=== PATIENT | male | born 1960 | race American Indian/Alaskan Native ===

== ENCOUNTER 2016-04-03 16:06 | Outpatient (RCR) | payer MEDICARE, MEDICAID ==
[~2016-04-03 16:06] MED LIST: CYCL10TA9 PO; ENLP10T PO; GABA600T PO; HYDR-3714 PO; LORA0.5T34 GT; OXYC-109 PO; OXYC1TAB87 PO; POLY119P PO; PRM25T PO; SERT50TA9 PO; TOPI50TA2 PO; ZLP10T PO
--- OUTSIDE RECORDS SUMMARY | 2016-04-03 16:09 | XMS REPORT | Continuity of Care Document ---
Author Author [facility] Organization [facility] Address Unknown Phone Unavailable Care Team Providers Care Colorist Formulator Name Role Phone BRODIE BROWN PCP Insurance Providers Payer Name Policy Number Subscriber Name Relationship Wps Medicare [id number] Vincent Dasilva 18 Self / Same As Patient [facility] [id number] Vincent Dasilva 18 Self / Same As Patient Advance Directives Directive Response Recorded Date/Time Advance Directives No 11/29/13 11:53am Health Care Power of Cylinder Batcher No 11/29/13 11:53am Organ Donor No 11/29/13 11:53am Problems No known problems or medical conditions. Medications Medication Dose Route Sig Days/Qty Instructions Order Date Discontinued Date Status Topiramate 50 Mg PO TWICE A DAY 07/29/13 Active Lorazepam 0.5 Mg GT DAILY 07/29/13 11/29/13 Discontinued Zolpidem Tartrate 10 Mg PO BEDTIME 07/29/13 Active Cyclobenzaprine HCl (Flexeril) 10 Mg PO THREE TIMES A DAY PRN SPASMS PRN SPASMS 11/02/13 Active Oxycodone Hcl/Acetaminophen 1 Each PO Q6 PRN PAIN 11/02/13 11/29/13 Discontinued Hydrocodone Bit/Acetaminophen 1 Tab PO EVERY 6 HOURS PRN PAIN 12/13/13 Discontinued Polyethylene Glycol 17 Gm PO DAILY 11/29/13 Active Gabapentin 600 Mg PO THREE TIMES A DAY 11/29/13 Active Oxycodone/Acetaminophen 1-2 Tab PO GIVE EVERY 4 HRS ON SCHEDULE PRN pain 120 Qty 12/13/13 Active Enalapril Maleate 10 Mg PO DAILY 30 Qty 12/13/13 Active Promethazine HCl 25 Mg PO EVERY 8HRS PRN NAUSEA 30 Qty 12/13/13 Active Social History Social History Problem Response Recorded Date/Time Alcohol Use Denies Use 12/06/2013 12:43pm Recreational Drug Use Y OCC MARUIANNA 12/06/2013 12:43pm Recent Foreign Travel No 12/06/2013 12:43pm Recent Infectious Disease Exposure No 12/06/2013 12:43pm Hospitalization with Isolation Denies 12/13/2013 6:44pm Smoking Status Current Everyday Smoker 12/06/2013 12:42pm Do you dip or chew tobacco? No 12/06/2013 12:42pm Query Response Start Date Stop Date Smoking Status Current Everyday Smoker Hospital Discharge Instructions No hospital discharge instructions. Plan of Care Discharge Date 12/13/13 6:41pm Disposition 30 STILL A PATIENT Instructions/Education Provided Colostomy Care (DC) Forms Provided Follow-Up Appts. PDI Surgical Prescriptions See Medications Section Functional Status Query Response Date Recorded Patient Orientation Person Place Time Situation Normal For Age December 13, 2013 6:44pm Comprehension Ability Understands Concepts December 08, 2013 4:00pm Allergies, Adverse Reactions, Alerts Allergen Type Severity Reaction Status Last Updated No Known Drug Allergies Active 08/02/13 Immunizations Name Given Type Date of Pneumonia Vaccine 08/02/09 Historical Tetanus Booster (TDap) More than 5yrs Historical Vital Signs Acute Vital Signs Vital Response Date/Time Temperature (Fahrenheit) 99.3 degrees F (97.6 - 99.5) Temperature (Calculated Celsius) 37.25858 degrees C (36.4 - 37.5) Temperature Source Temporal Pulse Rate (adult) 80 bpm (60 - 90) Respiratory Rate 18 bpm (12 - 24) O2 Sat by Pulse Oximetry 98 % (88 - 100) Blood Pressure 149/78 mm Hg Pain Pain Intensity 3 Height (Feet) 5 feet Height (Inches) 11.00 inches Height (Calculated Centimeters) 180.062164 cm Weight (Pounds) 249 pounds Weight (Calculated Grams) 574327.501 gm Weight (Calculated Kilograms) 112.390932 kilograms Calculated BMI 34.72 Results Test Source Date Result Interp. Ref. Range Comments Alanine Aminotransferase (ALT/SGPT) October 22, 2013 2:07pm 24 U/L L 30-65 Albumin October 22, 2013 2:07pm 3.5 G/DL N 3.4-5.0 Alkaline Phosphatase October 22, 2013 2:07pm 110 U/L N 50-136 Anisocytosis November 02, 2013 10:10am MODERATE - Aspartate Amino Transf (AST/SGOT) October 22, 2013 2:07pm 12 U/L L 15-37 BUN/Creatinine Ratio November 29, 2013 12:15pm 11 - Band Neutrophils November 02, 2013 10:10am 0 % - Basophils # (Auto) November 29, 2013 12:15pm 0.0 10^3/uL N 0.0-0.1 Basophils % (Manual) November 02, 2013 10:10am 0 % - Basophils (%) (Auto) November 29, 2013 12:15pm 1 % N 0-10 Blood Urea Nitrogen November 29, 2013 12:15pm 10 MG/DL N 7-18 Calcium Level November 29, 2013 12:15pm 8.4 MG/DL L 8.5-10.1 Carbon Dioxide Level November 29, 2013 12:15pm 26 MMOL/L N 21-32 Carcinoembryonic Antigen September 14, 2013 1:54pm 0.7 NG/ML - INTERPRETIVE DATACEA IS A USEFUL TUMOR MARKER IN THE MONITORING AND STAGING OF PATIENTS WITH KNOWN CARCINOMA OF THE GASTROINTESTINAL TRACT. BREAST, PANCREAS AND LUNG. ELEVATIONS ALSO OCCUR IN SMOKERS AND BENIGN INFLAMMATORY CONDITIONS OF THE G.I. TRACT, LIVER, LUNG AND KIDNEY. CEA SHOULD,THEREFORE, NOT BE USED A SCREEN FOR MALIGNANT DISEASE. NON-SMOKERS <2.5 SMOKERS <5.0 PATIENTS WHO HAVE RECEIVED ONCOSCINT CR/OV TRACER MAY DEVELOP HUMAN ANTI MOUSE ANTIBODIES THAT CAUSE INTERFERENCE IN THIS TEST AND CAUSE FALSELY ELEVATED RESULTS. PLEASE ADVISE THE LABORATORY IF THIS IS A POSSIBILITY SO THAT ALTERNATE TESTING PROCEDURES MAY BE USED. Chloride Level November 29, 2013 12:15pm 107 MMOL/L N 101-110 Creatinine November 29, 2013 12:15pm 0.9 MG/DL N 0.6-1.3 Eosinophils # (Auto) November 29, 2013 12:15pm 0.5 10^3/uL H 0.0-0.3 Eosinophils % (Manual) November 02, 2013 10:10am 19 % - Eosinophils (%) (Auto) November 29, 2013 12:15pm 12 % H 0-10 Glucose Level November 29, 2013 12:15pm 89 MG/DL N 74-106 Hematocrit November 29, 2013 12:15pm 40 % N 40-54 Hemoglobin November 29, 2013 12:15pm 14.1 G/DL N 13.3-17.7 Lymphocytes # (Auto) November 29, 2013 12:15pm 0.6 X 10^3 L 1.0-4.0 Lymphocytes % (Manual) November 02, 2013 10:10am 18 % - Lymphocytes (%) (Auto) November 29, 2013 12:15pm 14 % N 12-44 Macrocytosis November 02, 2013 10:10am MODERATE - Mean Corpuscular Hemoglobin November 29, 2013 12:15pm 33 PG N 25-34 Mean Corpuscular Hemoglobin Concent November 29, 2013 12:15pm 35 G/DL N 32- 36 Mean Corpuscular Volume November 29, 2013 12:15pm 94 FL N 80-99 Mean Platelet Volume November 29, 2013 12:15pm 9.9 FL N 7.4-10.4 Monocytes # (Auto) November 29, 2013 12:15pm 0.5 X 10^3 N 0.0-1.0 Monocytes % (Manual) November 02, 2013 10:10am 11 % - Monocytes (%) (Auto) November 29, 2013 12:15pm 11 % N 0-12 Neutrophils # (Auto) November 29, 2013 12:15pm 2.7 X 10^3 N 1.8-7.8 Neutrophils % (Manual) November 02, 2013 10:10am 51 % - Neutrophils (%) (Auto) November 29, 2013 12:15pm 62 % N 42-75 Platelet Count November 29, 2013 12:15pm 198 10^3/uL N 130-400 Potassium Level November 29, 2013 12:15pm 3.5 MMOL/L L 3.6-5.0 Prothrombin Time November 29, 2013 12:15pm 12.7 SEC N 12.2-14.7 Reactive Lymphocytes November 02, 2013 10:10am 1 % - Red Blood Count November 29, 2013 12:15pm 4.31 10^6/uL L 4.35-5.85 Red Cell Distribution Width November 29, 2013 12:15pm 14.6 % H 10.0-14.5 Sodium Level November 29, 2013 12:15pm 141 MMOL/L N 135-145 Total Bilirubin October 22, 2013 2:07pm 0.4 MG/DL N 0.0-1.0 Total Protein October 22, 2013 2:07pm 7.6 G/DL N 6.4-8.2 White Blood Count November 29, 2013 12:15pm 4.3 10^3/uL N 4.3-11.0 Estimat Glomerular Filtration Rate November 29, 2013 12:15pm > 60 - GFR INTERPRETIVE DATA UNITS FOR ESTIMATED GFR (eGFR): mL/min/1.73 M2 REFERENCE RANGE FOR ESTIMATED GFR (eGFR) eGFR NORMAL eGFR >60 MODERATELY DECREASED eGFR 30-59 SEVERLY DECREASED eGFR 15-29 KIDNEY FAILURE <15 (OR DIALYSIS) INR Comment November 29, 2013 12:15pm 1.0 N 0.8-1.4 INTERPRETIVE DATASUGGESTED THERAPEUTIC RANGE FOR INR'S: VENOUS THROMBOSIS, PULMONARY EMBOLISM, OR PREVENTION OF SYSTEMIC EMBOLISM (EG. IN ATRIAL FIBRILLATION): 2.0 - 3.0 MECHANICAL PROSTHETIC HEART VALVES: 2.5 - 3.5* *NOTE: INR'S UP TO 4.5 MAY BE NECESSARY IN SELECTED GROUPS OF HIGH RISK PATIENTS. [employer] [place] CONSENSUS CONFERENCE ON ANTITHROMBOTIC THERAPY (2000). MRSA Screen Nasal November 29, 2013 12:15pm MRSA not isolated Procedures Procedure Status Date Provider(s) Abdominoperineal resection of rectum completed 12/06/13 ASHISH YEE DO Encounters Encounter Location Date/Time Discharged Inpatient Via [facility] 12/06/13 10:14am Registered Clinic [facility] 11/29/13 11:34am
[2016-04-03 16:13] LABS: BASOPHILS % (AUTO) 1 % (0-10); EOSINOPHILS # (AUTO) 0.2 10^3/uL (0.0-0.3); EOSINOPHILS % (AUTO) 3 % (0-10); LYMPHOCYTES # (AUTO) 1.2 X 10^3 (1.0-4.0); LYMPHOCYTES % (AUTO) 22 % (12-44); MEAN CORPUSCULAR HEMOGLOBIN 32 PG (25-34); MEAN CORPUSCULAR HGB CONC 34 G/DL (32-36); MEAN CORPUSCULAR VOLUME 93 FL (80-99); MEAN PLATELET VOLUME 10.3 FL (7.4-10.4); MONOCYTES # (AUTO) 0.5 X 10^3 (0.0-1.0); MONOCYTES % (AUTO) 10 % (0-12); NEUTROPHILS # (AUTO) 3.4 X 10^3 (1.8-7.8); NEUTROPHILS % (AUTO) 64 % (42-75); PLATELET COUNT 234 10^3/uL (130-400); RED BLOOD COUNT 4.71 10^6/uL (4.35-5.85); RED CELL DISTRIBUTION WIDTH 14.2 % (10.0-14.5); WHITE BLOOD COUNT 5.3 10^3/uL (4.3-11.0)
[2016-04-03 16:46] LABS: ALANINE AMINOTRANSFERASE 18 U/L (0-55); ALBUMIN 3.9 G/DL (3.2-4.5); ANION GAP 8 MMOL/L (5-14); ASPARTATE AMINO TRANSFERASE 21 U/L (5-34); BILIRUBIN,TOTAL 0.4 MG/DL (0.1-1.0); BLOOD UREA NITROGEN 9 MG/DL (7-18); BUN/CREATININE RATIO 11; CALCIUM 8.9 MG/DL (8.5-10.1); CARBON DIOXIDE 20 MMOL/L (21-32); CHLORIDE 114 MMOL/L (98-107); CREATININE SERUM 0.85 MG/DL (0.60-1.30); GFR ESTIMATED > 60; GLUCOSE 87 MG/DL (70-105); POTASSIUM 3.9 MMOL/L (3.6-5.0); SODIUM 142 MMOL/L (135-145); TOTAL PROTEIN 7.4 G/DL (6.4-8.2)
== END 2016-07-02 | disposition home or self-care (01) ==
LOC: ONC 16:06
PROVIDERS: ATTEND Internal Medicine Hematology & Oncology
DX: C20 Malignant neoplasm of rectum (principal)
CPT/HCPCS: 36415; 80053; 82378; 85025

== ENCOUNTER → 2016-05-21 | Outpatient (CLI) | payer MEDICARE, MEDICAID ==
--- OUTSIDE RECORDS SUMMARY | 2016-05-21 11:24 | XMS REPORT | Continuity of Care Document ---
Author Author [facility] Organization [facility] Address Unknown Phone Unavailable Care Team Providers Care Drainage Inspector Name Role Phone BRODIE BROWN PCP Insurance Providers Payer Name Policy Number Subscriber Name Relationship Wps Medicare [id number] Vincent Dasilva 18 Self / Same As Patient [facility] [id number] Vincent Dasilva 18 Self / Same As Patient Advance Directives Directive Response Recorded Date/Time Advance Directives No 11/29/13 11:53am Health Care Power of Drafting Supervisor No 11/29/13 11:53am Organ Donor No 11/29/13 [...] F (97.6 - 99.5) Temperature (Calculated Celsius) 37.41361 degrees C (36.4 - 37.5) Temperature Source Temporal Pulse Rate (adult) 80 bpm (60 - 90) Respiratory Rate 18 bpm (12 - 24) O2 Sat by Pulse Oximetry 98 % (88 - 100) Blood Pressure 149/78 mm Hg Pain Pain Intensity 3 Height (Feet) 5 feet Height (Inches) 11.00 inches Height (Calculated Centimeters) 180.690872 cm Weight (Pounds) 249 pounds Weight (Calculated Grams) 687523.501 gm Weight (Calculated Kilograms) 112.925350 kilograms Calculated BMI 34.72 Results Test Source [...] SELECTED GROUPS OF HIGH RISK PATIENTS. [employer] [employer] CONSENSUS CONFERENCE ON ANTITHROMBOTIC THERAPY (2000). MRSA Screen Nasal November 29, 2013 12:15pm MRSA not isolated Procedures Procedure Status Date Provider(s) Abdominoperineal resection of rectum completed 12/06/13 ASHISH YEE DO Encounters Encounter Location Date/Time Discharged Inpatient Via [facility] 12/06/13 10:14am Registered Clinic [facility] 11/29/13 11:34am
--- NOTE | 2016-05-21 16:13 | Diagnostic Imaging Report ---
EXAMINATION: PET-CT TECHNIQUE: Serum glucose level at the time of the study is: 83 mg/dL. 13.9 mCi of FDG was administered intravenously followed by obtaining PET images with corresponding noncontrast CT scan images. The CT scan was performed for anatomic correlation and attenuation correction and was not performed according to the diagnostic protocol of the areas covered. The scan was performed from the head to mid thighs. INDICATION: Colon cancer. Increased nodularity noted in the presacral region seen on CT from 04/30/2016 and filling defect within the lumen of the distal ileum was noted. Correlating PET/CT from 10/10/15 is reviewed. FINDINGS: There is symmetric FDG uptake in the brain seen. There is mild to moderate increased FDG uptake in the oral cavity that appears to correlate with the region of the hard palate with no definite underlying mass seen on the localizer CT scan. The area of activity appears elongated as well on the sagittal projection which is in favor of an inflammatory rather than neoplastic etiology. No suspicious hypermetabolic mass or enlarged lymph node in the chest is seen. There is urinary excretion of the tracer noted. There is moderate image noise on the exam probably secondary to the patient's body habitus. This might also relate to decreased counts from some muscle uptake seen around the shoulders and upper back in particular which would decrease the available counts available otherwise for distribution in the rest of the body. The bowel loops demonstrate relatively mild nonfocal activity in ileal loops within the pelvis with focal area of mild increased activity with maximum SUV of 5.6. This does not appear to correlate with appearance of a filling defect seen on recent CT scan and has correlating low density probably related to enteric fluid content suggestive of physiologic uptake. In the presacral area, there is mild nodularity seen with minimal increased FDG uptake at maximum SUV of 3, nonspecific for scarring. Given the increased thickness of the soft tissue nodularity from prior studies, early recurrence is not entirely excluded. IMPRESSION: Nonspecific minimal focal area of increased FDG uptake in the distal small bowel loops does not appear to definitely correlate with associated soft tissue density to suggest an enteric mass. There is also minimal increased FDG uptake within the nodular area in the presacral region. This is not enough activity to confirm tumor recurrence. Continued followup recommended. Dictated by: Dictated on workstation # [id number]
== END ==
LOC: RAD 11:20
PROVIDERS: ATTEND Surgery
DX: C18.9 Malignant neoplasm of colon, unspecified (principal)

== ENCOUNTER → 2016-06-20 | Outpatient (CLI) | payer MEDICARE, MEDICAID ==
--- OUTSIDE RECORDS SUMMARY | 2016-06-20 05:44 | XMS REPORT | Continuity of Care Document ---
Author Author [facility] Organization [facility] Address Unknown Phone Unavailable Care Team Providers Care Conference Center Coordinator Name Role Phone BRODIE BROWN PCP Insurance Providers Payer Name Policy Number Subscriber Name Relationship [employer] Medicare [id number] Vincent Dasilva 18 Self / Same As Patient [facility] [id number] Vincent Dasilva 18 Self / Same As Patient Advance Directives Directive Response Recorded Date/Time Advance Directives No 11/29/13 11:53am Health Care Power of Finish Carpenter No 11/29/13 11:53am Organ Donor No 11/29/13 [...] F (97.6 - 99.5) Temperature (Calculated Celsius) 37.58845 degrees C (36.4 - 37.5) Temperature Source Temporal Pulse Rate (adult) 80 bpm (60 - 90) Respiratory Rate 18 bpm (12 - 24) O2 Sat by Pulse Oximetry 98 % (88 - 100) Blood Pressure 149/78 mm Hg Pain Pain Intensity 3 Height (Feet) 5 feet Height (Inches) 11.00 inches Height (Calculated Centimeters) 180.347156 cm Weight (Pounds) 249 pounds Weight (Calculated Grams) 962355.501 gm Weight (Calculated Kilograms) 112.422327 kilograms Calculated BMI 34.72 Results Test Source [...] SELECTED GROUPS OF HIGH RISK PATIENTS. [employer] [employer] CONSENSUS CONFERENCE ON ANTITHROMBOTIC THERAPY (2000). MRSA Screen Nasal November 29, 2013 12:15pm MRSA not isolated Procedures Procedure Status Date Provider(s) Abdominoperineal resection of rectum completed 12/06/13 ASHISH YEE DO Encounters Encounter Location Date/Time Discharged Inpatient Via [facility] 12/06/13 10:14am Registered Clinic [facility] 11/29/13 11:34am
== END ==
LOC: PREOP 05:40
PROVIDERS: ATTEND Surgery
DX: Z01.818 Encounter for other preprocedural examination (principal); C20 Malignant neoplasm of rectum

== ENCOUNTER 2018-04-22 12:46 | Outpatient (RCR) | payer MEDICARE, MEDICAID ==
[2018-04-22 13:04] LABS: BASOPHILS % (AUTO) 1 % (0-10); EOSINOPHILS # (AUTO) 0.2 10^3/uL (0.0-0.3); EOSINOPHILS % (AUTO) 3 % (0-10); HEMATOCRIT 42 % (40-54); HEMOGLOBIN 14.1 G/DL (13.3-17.7); LYMPHOCYTES # (AUTO) 1.2 X 10^3 (1.0-4.0); LYMPHOCYTES % (AUTO) 18 % (12-44); MEAN CORPUSCULAR HEMOGLOBIN 29 PG (25-34); MEAN CORPUSCULAR HGB CONC 34 G/DL (32-36); MEAN CORPUSCULAR VOLUME 88 FL (80-99); MEAN PLATELET VOLUME 10.3 FL (7.4-10.4); MONOCYTES # (AUTO) 0.5 X 10^3 (0.0-1.0); MONOCYTES % (AUTO) 8 % (0-12); NEUTROPHILS # (AUTO) 4.6 X 10^3 (1.8-7.8); NEUTROPHILS % (AUTO) 70 % (42-75); PLATELET COUNT 236 10^3/uL (130-400); RED CELL DISTRIBUTION WIDTH 13.9 % (10.0-14.5); WHITE BLOOD COUNT 6.6 10^3/uL (4.3-11.0)
[2018-04-22 13:25] LABS: ALANINE AMINOTRANSFERASE 14 U/L (0-55); ALBUMIN 3.8 GM/DL (3.2-4.5); ALKALINE PHOSPHATASE 214 U/L (40-136); BILIRUBIN,TOTAL 0.4 MG/DL (0.1-1.0); BUN/CREATININE RATIO 15; CALCIUM 9.4 MG/DL (8.5-10.1); CARBON DIOXIDE 26 MMOL/L (21-32); CHLORIDE 105 MMOL/L (98-107); CREATININE SERUM 1.01 MG/DL (0.60-1.30); GFR ESTIMATED > 60; GLUCOSE 118 MG/DL (70-105); POTASSIUM 3.5 MMOL/L (3.6-5.0); SODIUM 141 MMOL/L (135-145); TOTAL PROTEIN 7.6 GM/DL (6.4-8.2)
== END 2018-07-21 | disposition home or self-care (01) ==
LOC: ONC 12:46
PROVIDERS: ATTEND Internal Medicine Hematology & Oncology
DX: C20 Malignant neoplasm of rectum (principal); C79.51 Secondary malignant neoplasm of bone; K43.5 Parastomal hernia without obstruction or gangrene; M54.5 Low back pain; R06.00 Dyspnea, unspecified; R32 Unspecified urinary incontinence; Z79.899 Other long term (current) drug therapy
CPT/HCPCS: 36415; 80053; 82378; 85025; 99213

== ENCOUNTER → 2018-04-23 | Outpatient (CLI) | payer MEDICARE, MEDICAID | END | disposition home or self-care (01) | LOC: PREOP 05:34 | PROVIDERS: ATTEND Surgery | DX: Z01.818 Encounter for other preprocedural examination (principal) ==

== ENCOUNTER 2019-02-19 11:15 | Emergency (ER) | payer MEDICARE, MEDICAID ==
[~2019-02-19] VITALS: Ht 180.3 cm; Wt 77.0 kg
--- NOTE | 2019-02-19 11:27 | ED General ---
General Stated Complaint: GENERAL WEAKNESS History of Present Illness Date Seen by Provider: Feb 19, 2019 Time Seen by Provider: 11:15 Initial Comments 58-year-old male brought in by EMS. Patient brought in for generalized weakness. Patient has known metastatic anal cancer. Patient was seen by his home health care nurse today and sent him in for exam and possible placement if able to facility. Patient has been living alone has not had medical care or taken his medications for 8 months. When I asked patient what he would like to have done he says whatever his home health care nurses says. Patient states he knows he has terminal cancer. Patient reports he does not take his medication because he has not seen a doctor to get them. Patient has some bilateral drainage from his eyes but otherwise no complaints besides maybe some generalized weakness. Allergies and Home Medications Allergies Coded Allergies: No Known Drug Allergies (Unverified , 08/02/13) Home Medications Enalapril Maleate 10 Mg Tab, 10 MG PO DAILY, (Reported) Oxycodone Hcl/Acetaminophen 1 Tab Tablet, 1-2 TAB PO Q4HR PRN for PAIN Prescribed by: RYAN KRISHNA on 01/21/14 0942 Polyethylene Glycol 119 Gm Btl, 17 GM PO DAILY, (Reported) Sertraline Hcl 50 Mg Tablet, 50 MG PO DAILY, (Reported) Zolpidem Tartrate 10 Mg Tab, 10 MG PO HS, (Reported) Patient Home Medication List Home Medication List Reviewed: Yes Review of Systems Review of Systems Constitutional: see HPI, weakness EENTM: see HPI Respiratory: cough Cardiovascular: No chest pain Gastrointestinal: see HPI Genitourinary: incontinence Musculoskeletal: no symptoms reported Past Nhveaym-Eakwqt-Ckfbtt Hx Past Med/Social Hx: Reviewed Nursing Past Med/Soc Hx Immunizations Up To Date Tetanus Booster (TDap): More than 5yrs Date of Pneumonia Vaccine: Aug 02, 2009 Past Medical History Arthritis Rectal Family Medical History Alcoholism 19 FATHER 19 MOTHER Cancer 19 MOTHER (BREAST) G8 BROTHER (STOMACH) G8 SISTER (BREAST) Family history: Breast disease 19 MOTHER Myocardial infarction 19 FATHER Stroke 19 FATHER No Family History of: Abdominal aortic aneurysm Cancer of colon Congestive heart failure Family history: Alzheimer's disease Family history: Arthritis Family history: Asthma Family history: Cardiovascular disease Family history: Diabetes mellitus Family history: Gastrointestinal disease Family history: Hypertension Family history: Thyroid disorder Heart disease Hereditary disease Parkinson's disease Prostate cancer Psychotic disorder Seizure disorder Physical Exam Vital Signs Vital Signs - First Documented 02/19/19 11:18 Temp 36.9 Pulse 92 Resp 16 B/P (MAP) 137/92 (107) Pulse Ox 100 O2 Delivery Room Air Capillary Refill : Height, Weight, BMI Height: 5'11.00" Weight: 269lbs. oz. 122.181142ki; BMI Method: General Appearance: Other (unkept, smells of urine) Eyes: Bilateral Eye Other (bilateral mucopurulent drainage) Neck: Full Range of Motion Respiratory: Lungs Clear Cardiovascular: Regular Rate, Rhythm Gastrointestinal: No Tenderness; Other (ostomy pouch in right lower quadrant) Extremity: Normal Capillary Refill Neurologic/Psychiatric: Alert, Oriented x3, No Motor/Sensory Deficits Skin: Warm/Dry Progress/Results/Core Measures Suspected Sepsis SIRS Temperature: Pulse: Respiratory Rate: Laboratory Tests 02/19/19 11:23: White Blood Count 7.3 Blood Pressure / Mean: Laboratory Tests 02/19/19 11:23: Creatinine 3.31H, INR Comment 1.0, Platelet Count 348, Total Bilirubin 0.2 Results/Orders Lab Results Laboratory Tests Test 02/19/19 11:23 02/19/19 12:39 Range/Units White Blood Count 7.3 4.3-11.0 10^3/uL Red Blood Count 3.18 L 4.35-5.85 10^6/uL Hemoglobin 8.8 L 13.3-17.7 G/DL Hematocrit 28 L 40-54 % Mean Corpuscular Volume 88 80-99 FL Mean Corpuscular Hemoglobin 28 25-34 PG Mean Corpuscular Hemoglobin Concent 31 L 32-36 G/DL Red Cell Distribution Width 15.8 H 10.0-14.5 % Platelet Count 348 130-400 10^3/uL Mean Platelet Volume 8.3 7.4-10.4 FL Neutrophils (%) (Auto) 68 42-75 % Lymphocytes (%) (Auto) 23 12-44 % Monocytes (%) (Auto) 5 0-12 % Eosinophils (%) (Auto) 2 0-10 % Basophils (%) (Auto) 1 0-10 % Neutrophils # (Auto) 5.0 1.8-7.8 X 10^3 Lymphocytes # (Auto) 1.7 1.0-4.0 X 10^3 Monocytes # (Auto) 0.4 0.0-1.0 X 10^3 Eosinophils # (Auto) 0.2 0.0-0.3 10^3/uL Basophils # (Auto) 0.1 0.0-0.1 10^3/uL Prothrombin Time 14.0 12.2-14.7 SEC INR Comment 1.0 0.8-1.4 Sodium Level 138 135-145 MMOL/L Potassium Level 3.5 L 3.6-5.0 MMOL/L Chloride Level 106 98-107 MMOL/L Carbon Dioxide Level 19 L 21-32 MMOL/L Anion Gap 13 5-14 MMOL/L Blood Urea Nitrogen 43 H 7-18 MG/DL Creatinine 3.31 H 0.60-1.30 MG/DL Estimat Glomerular Filtration Rate 19 BUN/Creatinine Ratio 13 Glucose Level 97 70-105 MG/DL Calcium Level 8.7 8.5-10.1 MG/DL Corrected Calcium 9.4 8.5-10.1 MG/DL Total Bilirubin 0.2 0.1-1.0 MG/DL Aspartate Amino Transf (AST/SGOT) 8 5-34 U/L Alanine Aminotransferase (ALT/SGPT) < 5 0-55 U/L Alkaline Phosphatase 222 H 40-136 U/L Total Protein 8.6 H 6.4-8.2 GM/DL Albumin 3.1 L 3.2-4.5 GM/DL Urine Color PALE YELLOW Urine Clarity CLOUDY Urine pH 6.0 5-9 Urine Specific [place] 1.010 L 1.016-1.022 Urine Protein 1+ H NEGATIVE Urine Glucose (UA) NEGATIVE NEGATIVE Urine Ketones NEGATIVE NEGATIVE Urine Nitrite POSITIVE H NEGATIVE Urine Bilirubin NEGATIVE NEGATIVE Urine Urobilinogen 0.2 NORMAL MG/DL Urine Leukocyte Esterase 3+ H NEGATIVE Urine RBC (Auto) 1+ H NEGATIVE Urine RBC RARE /HPF Urine WBC TNTC H /HPF Urine Squamous Epithelial Cells NONE /HPF Urine Crystals NONE /LPF Urine Bacteria LARGE H /HPF Urine Casts NONE /LPF Urine Mucus NONE /LPF Urine Culture Indicated YES My Orders Orders - LANCE GONZALEZ L DO Cbc With Automated Diff (02/19/19 11:18) Comprehensive Metabolic Panel (02/19/19 11:18) Protime With Inr (02/19/19 11:18) Ua Culture If Indicated (02/19/19 11:18) Acute Abd Series (02/19/19 11:18) Ed Iv/Invasive Line Start (02/19/19 11:59) Ns Iv 1000 Ml (Sodium Chloride 0.9%) (02/19/19 11:59) Urine Culture (02/19/19 12:39) Ceftriaxone For Iv Use (Rocephin For I (02/19/19 13:30) Medications Given in ED Current Medications Medications Dose Ordered Sig/Paulina Route Start Time Stop Time Status Last Admin Dose Admin Ceftriaxone Sodium 1000 mg/ Sterile Water 10 ml @ 200 mls/hr ONCE ONCE IV 02/19/19 13:30 02/19/19 13:32 DC 02/19/19 13:24 200 MLS/HR Vital Signs/I&O 02/19/19 11:18 Temp 36.9 Pulse 92 Resp 16 B/P (MAP) 137/92 (107) Pulse Ox 100 O2 Delivery Room Air Capillary Refill : Progress Note : Progress Note Patient with acute kidney injury and hypokalemia. We will admit patient to Dr. Harvey for inpatient treatment and then probable long term. Patient will be transferred to [facility] due to [facility] having no beds available. Patient is stable and will be transferred in stable condition. ECG Initial ECG Impression: Normal Diagnostic Imaging Diagonstic Imaging: Xray Plain Films/CT/US/NM/MRI: abdomen Comments No acute findings Departure Impression Primary Impression: Acute kidney injury Additional Impression: Hypokalemia Disposition: 02 XFER SHT-TRM HOSP Condition: Stable Transfer Time Spoke to Accepting Phy: 12:15 Transfer Facility: [facility] Method of Transfer: EMS Departure-Patient Inst. Referrals: JESSICA MORGAN MD (PCP) Primary Care Physician BRODIE BROWN (Family) Primary Care Physician LANCE GONZALEZ DO Feb 19, 2019 11:27
[2019-02-19 11:33] LABS: BASOPHILS % (AUTO) 1 % (0-10); EOSINOPHILS % (AUTO) 2 % (0-10); HEMATOCRIT 28 % (40-54); HEMOGLOBIN 8.8 G/DL (13.3-17.7); LYMPHOCYTES % (AUTO) 23 % (12-44); MEAN CORPUSCULAR HEMOGLOBIN 28 PG (25-34); MEAN CORPUSCULAR HGB CONC 31 G/DL (32-36); MEAN CORPUSCULAR VOLUME 88 FL (80-99); MEAN PLATELET VOLUME 8.3 FL (7.4-10.4); MONOCYTES % (AUTO) 5 % (0-12); NEUTROPHILS % (AUTO) 68 % (42-75); PLATELET COUNT 348 10^3/uL (130-400); RED CELL DISTRIBUTION WIDTH 15.8 % (10.0-14.5); WHITE BLOOD COUNT 7.3 10^3/uL (4.3-11.0)
[2019-02-19 11:34] LABS: BASOPHILS # (AUTO) 0.1 10^3/uL (0.0-0.1); EOSINOPHILS # (AUTO) 0.2 10^3/uL (0.0-0.3); LYMPHOCYTES # (AUTO) 1.7 X 10^3 (1.0-4.0); MONOCYTES # (AUTO) 0.4 X 10^3 (0.0-1.0)
[2019-02-19 11:54] LABS: ALANINE AMINOTRANSFERASE < 5 U/L (0-55); ALKALINE PHOSPHATASE 222 U/L (40-136); BILIRUBIN,TOTAL 0.2 MG/DL (0.1-1.0); BUN/CREATININE RATIO 13; CALCIUM 8.7 MG/DL (8.5-10.1); CARBON DIOXIDE 19 MMOL/L (21-32); CHLORIDE 106 MMOL/L (98-107); CREATININE SERUM 3.31 MG/DL (0.60-1.30); GFR ESTIMATED 19; GLUCOSE 97 MG/DL (70-105); POTASSIUM 3.5 MMOL/L (3.6-5.0); SODIUM 138 MMOL/L (135-145); TOTAL PROTEIN 8.6 GM/DL (6.4-8.2)
[2019-02-19 11:55] LABS: ALBUMIN 3.1 GM/DL (3.2-4.5)
[2019-02-19] MEDS ORDERED: NS IV 1000 ML 1,000 ML IV SCH (11:59)
--- NOTE | 2019-02-19 12:19 | Diagnostic Imaging Report ---
INDICATION: Generalized weakness. COMPARISON: CT abdomen and pelvis of 04/30/2019. FINDINGS: The lungs are clear. No pleural effusion or pneumothorax. Normal cardiomediastinal silhouette and pulmonary vasculature. No free intraperitoneal air. Nonobstructive bowel gas pattern. Small to moderate volume of colonic stool is present. Bowel loops in the left anterior abdominal wall correspond to patient's known large hiatal hernia. Degenerative changes of the lumbar spine are noted. Advanced degenerative changes are present in both hips. IMPRESSION: 1. Nonobstructive bowel gas pattern. Ventral hernia is again noted. 2. No acute cardiopulmonary process. Dictated by: Dictated on workstation # [id number]
[2019-02-19 12:54] LABS: COLOR,URINE PALE YELLOW
[2019-02-19 12:55] LABS: BILIRUBIN,URINE NEGATIVE (NEGATIVE); CLARITY,URINE CLOUDY; GLUCOSE, URINE (UA) NEGATIVE (NEGATIVE); KETONES,URINE NEGATIVE (NEGATIVE); LEUKOCYTE ESTERASE ,URINE 3+ (NEGATIVE); NITRITE,URINE POSITIVE (NEGATIVE); PROTEIN,URINE 1+ (NEGATIVE); UROBILINOGEN,URINE 0.2 MG/DL (NORMAL)
[2019-02-19 12:56] LABS: BACTERIA,URINE LARGE /HPF; RBC,URINE RARE /HPF; WBC,URINE TNTC /HPF
--- NOTE | 2019-02-19 13:23 | NUR ---
Called dispatch to page out transfer to [facility] at this time.
[2019-02-19] MEDS ORDERED: cefTRIAXone FOR IV USE 1,000 MG in WATER (STERILE) FOR INJECTION 10 ML IV ONE (13:30)
[2019-02-19 13:40] VITALS: BP 159/81
== END 2019-02-19 13:40 | disposition short-term general hospital (02) ==
LOC: EDUNIT# 11:15 → ER FS 11:17
DX: N17.9 Acute kidney failure, unspecified (principal); E87.6 Hypokalemia; C21.0 Malignant neoplasm of anus, unspecified; C79.9 Secondary malignant neoplasm of unspecified site; Z80.3 Family history of malignant neoplasm of breast; Z80.0 Family history of malignant neoplasm of digestive organs; Z82.49 Family history of ischemic heart disease and other diseases of the circulatory system
CPT/HCPCS: 36415; 74022; 80053; 81000; 85025; 85610; 87077; 87088; 87186

== ENCOUNTER → 2019-03-11 | Outpatient (CLI) | payer MEDICARE, MEDICAID ==
[~2019-03-11] MED LIST changes: +FENT1PAT9 TD; +MELA1TAB27 PO; +MULT-422 PO; +OXYC-471 PO; +PATI8.4P PO; +PHEN-640 PO; +SULF1TAB35 PO; +TAMS0.4C98 PO
--- NOTE | 2019-03-11 12:09 | Diagnostic Imaging Report ---
PROCEDURE: CT chest, abdomen, and pelvis without contrast. TECHNIQUE: Multiple contiguous axial images were obtained through the chest, abdomen, and pelvis without the use of intravenous contrast. Auto Exposure Controls were utilized during the CT exam to meet ALARA standards for radiation dose reduction. INDICATION: Rectal cancer. COMPARISON: Comparison is made with PET-CT from 05/21/2016. Comparison is also made with conventional CT of the abdomen and pelvis from 04/30/2016. CT CHEST: No axillary lymphadenopathy is detected. Mediastinal and hilar evaluation is limited without intravenous contrast but no gross abnormality is seen. No pericardial or pleural fluid is identified. Parenchymal evaluation does demonstrate a new slightly lobulated nodule in the right lower lobe measuring 12 mm. Tiny nodule in the medial aspect of the right middle lobe is seen measuring 5 mm. No additional nodules are seen. CT ABDOMEN AND PELVIS: No discrete liver mass is detected. Gallbladder is unremarkable. No biliary duct dilatation is seen. Pancreas is unremarkable. Spleen is unremarkable. No adrenal mass is detected. Right kidney demonstrates a tiny 1 mm nonobstructing calculus in the upper pole. The left kidney demonstrates significant hydroureteronephrosis. Dilated left ureter is traced into the pelvis where there is a large soft tissue mass within the presacral region producing marked bony destructive changes to the sacrum. There is marked erosive and destructive as well as sclerotic changes to the sacrum as well as portions of the inferior and medial left iliac bone. Large soft tissue mass measures at least 7.1 cm AP by 12.7 cm transverse. There are small calcifications within the soft tissue component of the mass. This is likely obstructing the distal left ureter. Bladder does show some generalized wall thickening. Bowel loops are nondilated. Large parastomal hernia in the left lower quadrant is again seen containing small and large bowel loops. No free fluid or loculated fluid collection is identified. No inguinal lymphadenopathy is seen. Enlarged left obturator node is seen measuring 3.3 x 2.1 cm. There are some prominent left periaortic central retroperitoneal lymph nodes as well. IMPRESSION: 1. Development of right lower lobe and right middle lobe noncalcified pulmonary nodules consistent with pulmonary metastatic disease. No definite thoracic lymphadenopathy is detected. 2. Development of a large soft tissue mass in the presacral space producing marked bony destructive changes to the adjacent sacrum and left iliac bone consistent with tumor recurrence. There is an enlarged left obturator node. There appears to be significant left-sided hydroureteronephrosis consistent with obstruction of the distal left ureter by the mass. 3. Large left lower quadrant parastomal hernia, similar to prior exam. No bowel obstruction is seen. 4. Tiny nonobstructing right renal calculus. Dictated by: Dictated on workstation # [id number]
--- NOTE | 2019-03-11 13:26 | Diagnostic Imaging Report ---
PROCEDURE: MRI lumbar spine. TECHNIQUE: Multiplanar, multisequence MRI of the lumbar spine was performed without contrast. INDICATION: Increasing low back pain. Patient has a history of rectal carcinoma. The study was terminated early. Axial imaging could not be performed due to patient discomfort. FINDINGS: Curvature of the lumbar spine is normal. There is minimal retrolisthesis of L2 on L3. Lumbar vertebrae show normal stature. Lumbar marrow signal is without evidence of geographic marrow lesion. No acute compression fracture is seen. There is some generalized degenerative disc disease with variable disc space narrowing and desiccation. Conus is unremarkable at the L1 level. There is marked abnormal appearance to the sacrum. Low signal intensity throughout the sacrum is seen consistent with sclerosis noted on CT of the same day. Abnormal soft tissue signal intensity involves the sacral canal from approximately S1 level inferiorly. There appears to be abnormal tissue extending through the sacral foramina. Significant extraosseous soft tissue component in the presacral as well as retrosacral spaces. This correlates to a large soft tissue mass noted on recent CT. There is some mild broad-based disc/osteophyte complex indenting the ventral thecal sac at the L1-L2 and L2-L3 levels. There appears to be moderate spinal stenosis at L4-L5 level with associated neural foraminal stenosis. There is also some neural foraminal narrowing at the L1-L2 and L2-L3 levels. IMPRESSION: 1. Generalized lumbar spondylosis with central canal and neural foraminal narrowing. No acute compression fracture is seen. 2. Marked abnormal appearance to the sacrum. Large extraosseous soft tissue mass involves the sacral spinal canal and neural foramina in the presacral and right retrosacral spaces correlating with the soft tissue mass noted on CT study of the same day. The findings are consistent with rectal carcinoma recurrence. Dictated by: Dictated on workstation # [id number]
== END ==
LOC: RAD 11:23
PROVIDERS: ATTEND Internal Medicine Hematology & Oncology
DX: C20 Malignant neoplasm of rectum (principal); M47.816 Spondylosis without myelopathy or radiculopathy, lumbar region; M48.061 Spinal stenosis, lumbar region without neurogenic claudication; M53.3 Sacrococcygeal disorders, not elsewhere classified; R91.8 Other nonspecific abnormal finding of lung field; K43.5 Parastomal hernia without obstruction or gangrene
CPT/HCPCS: 71250; 72148; 74176

== ENCOUNTER 2019-03-12 05:51 | Outpatient (CLI) | payer MEDICARE, MEDICAID ==
[~2019-03-12] VITALS: Ht 180 cm; Wt 88.2 kg
[~2019-03-12 05:51] MED LIST changes: -FENT1PAT9 TD; -MELA1TAB27 PO; -MULT-422 PO; -OXYC-471 PO; -PATI8.4P PO; -PHEN-640 PO; -SULF1TAB35 PO; -TAMS0.4C98 PO
[2019-03-12] MEDS ORDERED: PATI8.4P PO (11:31)
[2019-03-12] MEDS ORDERED: MULT-422 PO (11:31)
[2019-03-12] MEDS ORDERED: SERT50TA9 PO (11:31)
[2019-03-12] MEDS ORDERED: FENT1PAT9 TD (11:31)
[2019-03-12] MEDS ORDERED: OXYC-471 PO (11:31)
[2019-03-12] MEDS ORDERED: MELA1TAB27 PO (11:31)
== END 2019-03-12 12:33 | disposition home or self-care (01) ==
LOC: PREOP 05:51
PROVIDERS: ATTEND Surgery
DX: Z01.818 Encounter for other preprocedural examination (principal)

== ENCOUNTER 2019-03-16 07:41 | Day surgery (SDC) | payer MEDICARE, MEDICAID ==
[2019-03-16] VITALS (11 sets, daily range): BP systolic 119–168; BP diastolic 71–92
[~2019-03-16] VITALS: Ht 180 cm; Wt 88.2 kg
[~2019-03-16 07:41] MED LIST changes: +FENT1PAT9 TD; +MELA1TAB27 PO; +MULT-422 PO; +OXYC-471 PO; +PATI8.4P PO
[2019-03-16] MEDS ORDERED: LACTATED RINGERS 1,000 ML IV PRN (07:53)
[2019-03-16] MEDS ORDERED: cefTRIAXone FOR IV USE 1,000 MG in WATER (STERILE) FOR INJECTION 10 ML IV ONE (08:00)
[2019-03-16] MEDS ORDERED: CATHETER FLUSH 10 ML SYR IV PRN (08:00)
--- NOTE | 2019-03-16 08:52 | Progress Note-Pre Operative ---
Pre-Operative Progress Note H&P Reviewed The H&P was reviewed, patient examined and no changes noted. Date Seen by Provider: Mar 16, 2019 Time Seen by Provider: 08:51 Date H&P Reviewed: Mar 16, 2019 Time H&P Reviewed: 08:51 Pre-Operative Diagnosis: BILATERAL URETERAL OBSTRUCTION EDWARD PENA MD Mar 16, 2019 08:52 POS
--- NOTE | 2019-03-16 08:53 | Progress Note-Post Operative ---
Post-Operative Progess Note Surgeon (s)/Learning Specialist (s) Surgeon EDWARD PENA MD Learning Specialist: NONE Pre-Operative Diagnosis BILATERAL URETERAL OBSTRUCTION AND LT DISTAL URETERAL STRICTURE Post-Operative Diagnosis SAME Procedure & Operative Findings Date of Procedure 03/16/19 Procedure Performed/Findings CYSTOSCOPY, BILATERAL RETROGRADE UROGRAM, AND INSERTION OF RT STENT WITH ATTEMPTED INSERTION OF LEFT STENT Anesthesia Type GENERAL Estimated Blood Loss Estimated blood loss (mL): NONE Specimens/Packing Specimens Removed NONE Packing: NONE EDWARD PENA MD Mar 16, 2019 08:53 POS
--- NOTE | 2019-03-16 08:54 | Discharge Inst-Urology ---
Discharge Inst-Urology Reconcile Patient Problems Problems Reviewed?: Yes Final Diagnosis BILATERAL URETERAL OBSTRUCTION Patient Instructions/Follow Up Plan/Assessment/Instructions Please make appointment to been seen in office in 4 weeks. Increase oral fluids for 48 hours and then as needed. Diet and Activity as tolerated. If questions or concerns contact your physician Or seek help at emergency department. EDWARD PENA MD Mar 16, 2019 08:54 POS
[2019-03-16] MEDS ORDERED: HEParin (CENTRAL IV FLUSH) 500 UNIT/5 ML SYR ONE (09:41)
[2019-03-16] MEDS ORDERED: BUP/EPI 0.5% 1:200,000 (SENSORCAINE) 30 ML VIAL ONE (09:41)
[2019-03-16] MEDS ORDERED: 0.9% SODIUM CHLORIDE PF INJ 20 ML VIAL ONE (09:41)
[2019-03-16] MEDS ORDERED: DEXAMETHASONE 10 MG/ML (DECADRON) 1 ML VIAL ONE (09:51)
[2019-03-16] MEDS ORDERED: ONDANSETRON 4 MG/2 ML (SDV) Z0FRAN ONE (09:51)
[2019-03-16] MEDS ORDERED: MIDAZOLAM 2 MG/2 ML (VERSED) VIAL ONE (09:51)
[2019-03-16] MEDS ORDERED: proPOfol 200 MG/20 ML (DIPRIVAN) VIAL IV ONE (09:51)
[2019-03-16] MEDS ORDERED: LIDOCAINE PF 2% 5 ML (XYLOCAINE) VIAL ONE (09:51)
[2019-03-16] MEDS ORDERED: SEVOFLURANE (ULTANE) 15 ML INHAL SOLN ONE ×5 (09:51→11:36)
[2019-03-16] MEDS ORDERED: fentaNYL INJECTION 100 MCG/2 ML AMP ONE (09:52)
[2019-03-16] MEDS ORDERED: ROCURONIUM 10 MG/ML 5 ML SYRINGE IV ONE (10:19)
--- NOTE | 2019-03-16 11:04 | Progress Note-Pre Operative ---
Pre-Operative Progress Note H&P Reviewed The H&P was reviewed, patient examined and no changes noted. Date Seen by Provider: Mar 16, 2019 Time Seen by Provider: 10:00 Date H&P Reviewed: Mar 16, 2019 Time H&P Reviewed: 10:00 Pre-Operative Diagnosis: recurrent rectal ca LESLIE SEAMAN MD Mar 16, 2019 11:04 POS
--- NOTE | 2019-03-16 11:44 | Progress Note-Post Operative ---
Post-Operative Progess Note Surgeon (s)/Cardiothoracic Icu Rn (s) Surgeon LESLIE SEAMAN MD Cardiothoracic Icu Rn: NONE Pre-Operative Diagnosis recurrent rectal ca Post-Operative Diagnosis same Procedure & Operative Findings Date of Procedure 03/16/19 Procedure Performed/Findings placement left subclavian groshong catheter under flouroscopy. Anesthesia Type general LMA Estimated Blood Loss Estimated blood loss (mL): minimal Specimens/Packing Specimens Removed none Packing: NONE LESLIE SEAMAN MD Mar 16, 2019 11:44 POS
[2019-03-16] MEDS ORDERED: morphine INJ 10 MG/ML 1ML (SYR OR VIAL) IVP ONE (12:00)
[2019-03-16] MEDS ORDERED: MEPERIDINE (DEMEROL) INJ 50 MG/ML IVP ONE (12:00)
[2019-03-16] MEDS ORDERED: ONDANSETRON 4 MG/2 ML (SDV) Z0FRAN IVP PRN (12:00)
--- NOTE | 2019-03-16 12:34 | Diagnostic Imaging Report ---
EXAMINATION: Chest 1 view HISTORY: Tube placement. FINDINGS: Comparison is 01/20/2014. Left subclavian central venous catheter tip terminates in the superior vena cava. The lungs are clear. No edema. No pneumonia. No pleural effusion. No pneumothorax. Heart is normal in size. IMPRESSION: 1. Clear lungs. Dictated by: Dictated on workstation # [id number]
--- NOTE | 2019-03-16 13:05 | Diagnostic Imaging Report ---
INDICATION: Internal Groshong placement. COMPARISON: Radiographs of the chest from the same date. FINDINGS: Single intraprocedural image of the central aspect of the chest was obtained on March 16, 2019. A central venous catheter is present with the distal tip appearing to terminate within the [id number] aspect of the superior vena cava. IMPRESSION: Intraoperative imaging from placement of a central venous catheter. See surgical note for full details. Additionally, postprocedure radiography is recommended to evaluate the entire course of the catheter, and this has already been obtained at the time of dictation. FLUOROSCOPY TIME: 19.9 seconds. Dictated by: Dictated on workstation # [id number]
--- NOTE | 2019-03-16 13:14 | Anesthesia-General Post-Op ---
General Patient Condition Mental Status/LOC: Same as Preop Cardiovascular: Satisfactory Nausea/Vomiting: Absent Respiratory: Satisfactory Pain: Controlled Complications: Absent Post Op Complications Complications None Follow Up Care/Instructions Patient Instructions None needed. Anesthesia/Patient Condition Patient Condition Patient is doing well, no complaints, stable vital signs, no apparent adverse anesthesia problems. No complications reported per nursing. RAJANI CALVERT CRNA Mar 16, 2019 13:14 POS
[2019-03-16] MEDS ORDERED: SULF1TAB35 PO (13:48)
[2019-03-16] MEDS ORDERED: TAMS0.4C98 PO (13:48)
[2019-03-16] MEDS ORDERED: PHEN-640 PO (13:48)
--- NOTE | 2019-03-16 18:15 | OPERATIVE REPORT ---
DATE OF SERVICE: 03/16/2019 PREOPERATIVE DIAGNOSIS: Bilateral ureteral obstruction. POSTOPERATIVE DIAGNOSIS: Bilateral ureteral obstruction with a left distal ureteral stricture. OPERATION PERFORMED: Cystoscopy, bilateral retrograde urogram and insertion of right stent, attempted insertion of left stent. SURGEON: Rodriguez Pena MD ANESTHESIA: General. COMPLICATIONS: None. DESCRIPTION OF PROCEDURE: Under satisfactory general anesthesia, the patient in lithotomy position, genitalia were prepped and draped in the usual sterile fashion. Cystoscope was introduced under vision. Anterior urethra was normal. The bladder was inspected revealed trabeculations. The prostate was nonobstructing. The bladder neck was opened. No tumor visualized. No stones, no foreign body. Ureteral orifice is very sluggish on both sides, more on the left side. Using the foroblique lens, I inserted a 6-Greenlandic ureteral catheter in the left orifice and injected contrast. There was a significant curve of the ureter and then good size length stricture above which there was some dilatation of the ureter. On the right side, I did the same thing and there was a curvature of the ureter, but no stricture. So I went ahead and passed a 6-Greenlandic 26 cm double-J stent on the right side. I was able to manipulate the curvature guided fluoroscopically with the contrast in the system and passed the stent all the way up to the right renal pelvis. I removed the guidewire and the stent was seen draining nicely proximally fluoroscopically and distally endoscopically. There was draining well through the ports. I tried to see him on the left side. I was able to manipulate the curve; however, I could not go through the stricture. I did not want to and cause any injury, so I quit further attempt, emptied the bladder, removed the cystoscope and then Dr. Edward Sanchez proceeded with his part of the surgery that he will dictate. Job ID: [id number] DocumentID: [id number] Dictated Date: 03/16/2019 10:58:53 Plastic Battery Assembler Date: 03/16/2019 18:14:46 Dictated By: RODRIGUEZ PENA MD
--- NOTE | 2019-03-16 19:05 | OPERATIVE REPORT ---
DATE OF SERVICE: 03/16/2019 ATTENDING PRIMARY CARE PHYSICIAN: Dr. Emanuel Aguirre. PREOPERATIVE DIAGNOSIS: Recurrent rectal cancer with bilateral hydronephrosis. POSTOPERATIVE DIAGNOSES: Recurrent rectal cancer with bilateral hydronephrosis. PROCEDURE: Placement of left subclavian Groshong implantable catheter under fluoroscopy. SURGEON: Leslie Seaman MD. ANESTHESIA: General laryngeal mask airway and local. ESTIMATED BLOOD LOSS: Minimal. FINDINGS: Catheter tip at superior vena cava - right atrial junction. DISPOSITION: The patient tolerated the procedure well. INDICATIONS: The patient is a 58-year-old male with a history of rectal cancer. He underwent neoadjuvant chemoradiation and underwent what appears to be an abdominal perineal resection. He then developed urinary symptoms and underwent a workup and was found to have bilateral hydronephrosis as well as a large recurrent pelvic mass consistent with recurrent rectal cancer. He was seen by Urology and underwent a cystoscopy as well as placement of one at the right ureteral stent; however, the stent could not be placed on the left side. He is also going to undergo chemotherapy and will need a Groshong implantable catheter. DESCRIPTION OF PROCEDURE: The patient first underwent cystoscopy as well as a ureteral stent placement by Urology under a general laryngeal mask airway intubation and once this was completed, the patient was placed in a supine position and the neck and chest were prepped and draped in standard surgical fashion. A 0.5% Marcaine with epinephrine was used to anesthetize the overlying skin in the left subclavian region and the left subclavian vein was then cannulated with drawing of venous blood. The guidewire was then inserted under fluoroscopy. Cannulating needle removed and a skin incision made using a 15-blade. The dilator and sheath were then introduced over the guidewire and the dilator and guidewire were then removed and the Groshong implantable catheter was placed until the catheter tip was at the superior vena cava - right atrial junction and then the sheath removed. The inner wire within the catheter was then removed and the catheter cut down to size and port placed onto the catheter. The skin incision was then extended laterally using a 15-blade and a chest reservoir was then created between the subcutaneous fat and the anterior pectoralis fascia using blunt dissection as well as cautery with visualization of good hemostasis. The port was then placed into the subcutaneous reservoir and sutured to the anterior pectoralis fascia using interrupted 3-0 Vicryl sutures. The subcutaneous tissue was then reapproximated using the same suture interrupted. Skin was closed using 4-0 Monocryl running subcuticular suture. Wound was then cleaned and covered with Dermabond. The port was accessed and venous blood drawn as well as a heparin pushed in without any resistance. The patient tolerated the procedure well. We will get a post-procedure chest x-ray and once confirmation of adequate placement of the catheter, the port may be accessed and used at any time. Job ID: [id number] DocumentID: [id number] Dictated Date: 03/16/2019 11:50:38 Isobutylene Operator Chief Date: 03/16/2019 19:04:04 Dictated By: LESLIE SEAMAN MD
== END 2019-03-16 14:10 ==
LOC: SDC 07:41
PROVIDERS: ATTEND Urology
DX: C20 Malignant neoplasm of rectum (principal); N13.1 Hydronephrosis with ureteral stricture, not elsewhere classified; G62.9 Polyneuropathy, unspecified; F17.200 Nicotine dependence, unspecified, uncomplicated; Z79.899 Other long term (current) drug therapy; Z79.891 Long term (current) use of opiate analgesic; Z83.3 Family history of diabetes mellitus; Z80.9 Family history of malignant neoplasm, unspecified
CPT/HCPCS: 71045; 87081

== ENCOUNTER 2019-05-25 09:24 | Outpatient (RCR) | payer MEDICARE, MEDICAID ==
[2019-03-25 15:19] LABS: BASOPHILS % (AUTO) 1 % (0-10); EOSINOPHILS # (AUTO) 0.5 10^3/uL (0.0-0.3); EOSINOPHILS % (AUTO) 6 % (0-10); HEMATOCRIT 28 % (40-54); HEMOGLOBIN 8.7 G/DL (13.3-17.7); LYMPHOCYTES # (AUTO) 1.7 X 10^3 (1.0-4.0); LYMPHOCYTES % (AUTO) 20 % (12-44); MEAN CORPUSCULAR HEMOGLOBIN 29 PG (25-34); MEAN CORPUSCULAR HGB CONC 31 G/DL (32-36); MEAN CORPUSCULAR VOLUME 94 FL (80-99); MEAN PLATELET VOLUME 8.7 FL (7.4-10.4); MONOCYTES # (AUTO) 0.7 X 10^3 (0.0-1.0); MONOCYTES % (AUTO) 9 % (0-12); NEUTROPHILS # (AUTO) 5.4 X 10^3 (1.8-7.8); NEUTROPHILS % (AUTO) 65 % (42-75); PLATELET COUNT 307 10^3/uL (130-400); RED CELL DISTRIBUTION WIDTH 15.4 % (10.0-14.5); WHITE BLOOD COUNT 8.3 10^3/uL (4.3-11.0)
[2019-03-25 15:50] LABS: ALBUMIN 3.6 GM/DL (3.2-4.5); BILIRUBIN,TOTAL 0.2 MG/DL (0.1-1.0); CALCIUM 8.6 MG/DL (8.5-10.1); CREATININE SERUM 3.63 MG/DL (0.60-1.30); POTASSIUM 5.7 MMOL/L (3.6-5.0); TOTAL PROTEIN 7.9 GM/DL (6.4-8.2)
[2019-05-07 12:02] LABS: BASOPHILS % (AUTO) 1 % (0-10); EOSINOPHILS # (AUTO) 0.3 10^3/uL (0.0-0.3); EOSINOPHILS % (AUTO) 6 % (0-10); HEMATOCRIT 29 % (40-54); HEMOGLOBIN 9.2 G/DL (13.3-17.7); LYMPHOCYTES # (AUTO) 0.9 X 10^3 (1.0-4.0); LYMPHOCYTES % (AUTO) 21 % (12-44); MEAN CORPUSCULAR HEMOGLOBIN 29 PG (25-34); MEAN CORPUSCULAR HGB CONC 32 G/DL (32-36); MEAN CORPUSCULAR VOLUME 90 FL (80-99); MEAN PLATELET VOLUME 9.8 FL (7.4-10.4); MONOCYTES # (AUTO) 0.5 X 10^3 (0.0-1.0); MONOCYTES % (AUTO) 11 % (0-12); NEUTROPHILS # (AUTO) 2.6 X 10^3 (1.8-7.8); NEUTROPHILS % (AUTO) 62 % (42-75); PLATELET COUNT 200 10^3/uL (130-400); RED CELL DISTRIBUTION WIDTH 14.9 % (10.0-14.5); WHITE BLOOD COUNT 4.2 10^3/uL (4.3-11.0)
[2019-05-07 12:17] LABS: ALBUMIN 3.5 GM/DL (3.2-4.5); BILIRUBIN,TOTAL 0.2 MG/DL (0.1-1.0); CREATININE SERUM 2.82 MG/DL (0.60-1.30); POTASSIUM 3.8 MMOL/L (3.6-5.0); TOTAL PROTEIN 7.5 GM/DL (6.4-8.2)
[~2019-05-25] VITALS: Ht 180.3 cm; Wt 91.2 kg
[~2019-05-25 09:24] MED LIST changes: +PHEN-640 PO; +SULF1TAB35 PO; +TMSL.4C PO
[2019-05-25 10:01] LABS: BASOPHILS % (AUTO) 1 % (0-10); EOSINOPHILS # (AUTO) 0.3 10^3/uL (0.0-0.3); EOSINOPHILS % (AUTO) 8 % (0-10); HEMATOCRIT 28 % (40-54); HEMOGLOBIN 8.9 G/DL (13.3-17.7); LYMPHOCYTES # (AUTO) 0.7 X 10^3 (1.0-4.0); LYMPHOCYTES % (AUTO) 18 % (12-44); MEAN CORPUSCULAR HEMOGLOBIN 29 PG (25-34); MEAN CORPUSCULAR HGB CONC 32 G/DL (32-36); MEAN CORPUSCULAR VOLUME 90 FL (80-99); MEAN PLATELET VOLUME 9.4 FL (7.4-10.4); MONOCYTES # (AUTO) 0.5 X 10^3 (0.0-1.0); MONOCYTES % (AUTO) 12 % (0-12); NEUTROPHILS # (AUTO) 2.5 X 10^3 (1.8-7.8); NEUTROPHILS % (AUTO) 63 % (42-75); PLATELET COUNT 174 10^3/uL (130-400); RED CELL DISTRIBUTION WIDTH 14.8 % (10.0-14.5); WHITE BLOOD COUNT 4.1 10^3/uL (4.3-11.0)
[2019-05-25 10:19] LABS: ALBUMIN 3.4 GM/DL (3.2-4.5); BILIRUBIN,TOTAL 0.2 MG/DL (0.1-1.0); CALCIUM 9.2 MG/DL (8.5-10.1); CREATININE SERUM 4.04 MG/DL (0.60-1.30); POTASSIUM 4.3 MMOL/L (3.6-5.0); TOTAL PROTEIN 7.4 GM/DL (6.4-8.2)
[2019-05-25] MEDS ORDERED: NS IV 1000 ML (CANCER CTR) 1,000 ML ONE (10:26)
[2019-05-25] MEDS ORDERED: ATROPINE INJ 0.4 MG/ML SDV (CANCER CENTER) INJ SCH (10:45)
[2019-05-25] MEDS ORDERED: FOSAPREPITANT DIMEGLUMINE 150 MG in NS (IVPB) CANCER CENTER ONLY 150 ML IV SCH (10:45)
[2019-05-25] MEDS ORDERED: PALONOSETRON HCL 0.25 MG, DEXAMETHASONE INJECTION 10 MG in NS (IVPB) CANCER CENTER 50 ML IV SCH (10:45)
[2019-05-25] MEDS ORDERED: NS IV 1000 ML (CANCER CTR) IV SCH (10:45)
[2019-05-25] MEDS ORDERED: NS IV SCH (11:00)
[2019-05-25] MEDS ORDERED: LEUCOVORIN CALCIUM IV SCH (11:00)
[2019-05-25] MEDS ORDERED: FLUOROURACIL IV SCH ×2 (11:00)
[2019-05-25] MEDS ORDERED: IRINOTECAN HCL IV SCH (11:00)
[2019-05-25] MEDS ORDERED: D5W IV SCH (11:00)
[2019-05-25] MEDS ORDERED: [UNRECOGNIZED DRUG - OTHER] IV SCH (11:00)
[2019-05-25] MEDS ORDERED: PANITUMUMAB INJECTION 400 MG, PANITUMUMAB INJECTION 100 MG in NS (IVPB) CANCER CENTER 1... IV SCH (11:00)
== END 2019-06-01 | disposition home or self-care (01) ==
LOC: ONC 09:24
PROVIDERS: ATTEND Internal Medicine Hematology & Oncology
DX: Z51.11 Encounter for antineoplastic chemotherapy (principal); Z51.0 Encounter for antineoplastic radiation therapy; C20 Malignant neoplasm of rectum; C79.51 Secondary malignant neoplasm of bone; K43.5 Parastomal hernia without obstruction or gangrene; M54.5 Low back pain; R06.00 Dyspnea, unspecified; R32 Unspecified urinary incontinence; Z79.899 Other long term (current) drug therapy
CPT/HCPCS: 36415; 36591; 77290; 77295; 77300; 77334; 77336; 77417; 77470; 80053; 82378; 82607; 82728; 83540; 85025; 96367; 96368; 96375; 96411; 96413; 96416; 96417; 96523; 99213; 99214

== ENCOUNTER 2019-05-30 17:12 | Emergency (ER) | payer MEDICARE, MEDICAID ==
[~2019-05-30] VITALS: Ht 180 cm; Wt 96.3 kg
[2019-05-30] MEDS ORDERED: NS IV 1000 ML 1,000 ML ONE (17:23)
[2019-05-30] MEDS ORDERED: NS IV 1000 ML 1,000 ML IV SCH ×2 (17:25→18:03)
[2019-05-30] MEDS ORDERED: fentaNYL INJECTION 100 MCG/2 ML AMP IVP ONE ×2 (17:30→20:15)
[2019-05-30] MEDS ORDERED: ONDANSETRON 4 MG/2 ML (SDV) Z0FRAN IVP ONE (17:30)
[2019-05-30 17:35] LABS: BASOPHILS % (AUTO) 0 % (0-10); EOSINOPHILS # (AUTO) 0.1 10^3/uL (0.0-0.3); EOSINOPHILS % (AUTO) 1 % (0-10); HEMATOCRIT 37 % (40-54); HEMOGLOBIN 12.7 G/DL (13.3-17.7); LYMPHOCYTES # (AUTO) 0.7 X 10^3 (1.0-4.0); LYMPHOCYTES % (AUTO) 15 % (12-44); MEAN CORPUSCULAR HEMOGLOBIN 29 PG (25-34); MEAN CORPUSCULAR HGB CONC 34 G/DL (32-36); MEAN CORPUSCULAR VOLUME 83 FL (80-99); MEAN PLATELET VOLUME 10.1 FL (7.4-10.4); MONOCYTES # (AUTO) 0.3 X 10^3 (0.0-1.0); MONOCYTES % (AUTO) 6 % (0-12); NEUTROPHILS # (AUTO) 3.8 X 10^3 (1.8-7.8); NEUTROPHILS % (AUTO) 78 % (42-75); PLATELET COUNT 344 10^3/uL (130-400); RED CELL DISTRIBUTION WIDTH 14.5 % (10.0-14.5); WHITE BLOOD COUNT 4.9 10^3/uL (4.3-11.0)
--- NOTE | 2019-05-30 17:49 | ED Abdominal Pain ---
General Chief Complaint: Abdominal/GI Problems Stated Complaint: SOB/CP Nursing Triage Note: pt c/o abd pain, N/V. currently being treated for colorectal cancer. reports chest pain et soa starting yesterday. Sepsis Screen: Possible Severe Sepsis Risk History of Present Illness Date Seen by Provider: May 30, 2019 Time Seen by Provider: 17:15 Initial Comments 58-year-old male presents for abdominal pain that is causing chest discomfort and shortness of air. He was brought by EMS, they gave aspirin 324 mg and Zofran 4 mg. No nitro was given, as he is normo-hypotensive. Patient has known colorectal cancer with metastasis to the sacrum and right lung. He was seen on 05/25/19 at oncology. Labs from that day were reviewed that showed a creatinine of 4.04. Patient reports for the last 3-4 days he has been having persistent vomiting and nausea, he hasn't been eating and drinking regularly. Timing/Duration: 3-4 Days Severity/Quality: Moderate Location: Generalized Abdomen Radiation: No Radiation Associated Symptoms: Chest Pain, Nausea/Vomiting, Shortness of Air, Swelling/Mass in Abdomen Allergies and Home Medications Allergies Coded Allergies: No Known Drug Allergies (Unverified , 08/02/13) Home Medications Fentanyl 1 Each Patch.td72, 50 MCG TD Q72H, (Reported) Melatonin/Pyridoxine HCl (B6) 1 Each Tablet, 3 MG PO HS, (Reported) Multivitamin with Minerals 1 Each Tablet, 1 EACH PO DAILY, (Reported) Oxycodone HCl/Acetaminophen 1 Each Tablet, 1 EACH PO Q4H PRN for PAIN-SEVERE, (Reported) Patiromer Calcium Sorbitex 8.4 Gm Powd.pack, 8.4 GM PO DAILY, (Reported) Phenazopyridine HCl 200 Mg Tablet, 1 TAB PO TID PRN for SPASMS Prescribed by: IDA PEREZ on 03/16/19 134 Sertraline HCl 50 Mg Tablet, 50 MG PO DAILY, (Reported) Sulfamethoxazole/Trimethoprim 1 Each Tablet, 1 EACH PO BID Prescribed by: IDA PEREZ on 03/16/19 1348 Tamsulosin HCl 0.4 Mg Cap, 0.4 MG PO DAILY Prescribed by: IDA PEREZ on 03/16/19 1348 Patient Home Medication List Home Medication List Reviewed: Yes Review of Systems Review of Systems Constitutional: see HPI, malaise, weakness, weight loss EENTM: No Symptoms Reported, See HPI Respiratory: See HPI, Shortness of Air, SOA With Exertion, SOA at Rest Cardiovascular: See HPI, Chest Pain Gastrointestinal: See HPI, Abdomen Distended (Left Upper and Lower ), Abdominal Pain, Diarrhea (Ileostomy with soft stools), Nausea, Poor Appetite, Vomiting Genitourinary: See HPI, Other (Decreased output from urostomy. ) Musculoskeletal: no symptoms reported, see HPI Skin: see HPI, other (jaundice) All Other Systems Reviewed Negative Unless Noted: Yes Past Ntghvhh-Kjkjhe-Hcljlk Hx Past Med/Social Hx: Reviewed and Corrections made Patient Social History Alcohol Use: Denies Use Recreational Drug Use: No (OCCASIONAL MARIJUANA USE) Drug of Choice: Marijuana Smoking Status: Former Smoker Type Used: Cigarettes 2nd Hand Smoke Exposure: No Recent Foreign Travel: No Contact w/Someone Who Travel: No Recent Infectious Disease Expo: No Recent Hopitalizations: No Immunizations Up To Date Tetanus Booster (TDap): More than 5yrs PED Vaccines UTD: No Date of Pneumonia Vaccine: Aug 02, 2009 Seasonal Allergies Seasonal Allergies: No Past Medical History Surgeries: Yes (SPINAL FUSION, Colostomy, AP resection) Bowel Surgery Respiratory: No Cardiac: No Neurological: No Genitourinary: Yes (Incontinence) Renal Failure Gastrointestinal: Yes (RECTOANAL CA) Musculoskeletal: Yes (ARTHRITIS) Arthritis, Chronic Back Pain Endocrine: No HEENT: No Cancer: Yes Rectal, Bone (sacram), Lung Did You Recieve Any Treatments: Yes Psychosocial: No Integumentary: Yes (pressure ulcer on left buttock stage 2) Blood Disorders: No Family Medical History Alcoholism 19 FATHER 19 MOTHER Cancer 19 MOTHER (BREAST) G8 BROTHER (STOMACH) G8 SISTER (BREAST) Family history: Breast disease 19 MOTHER Myocardial infarction 19 FATHER Stroke 19 FATHER No Family History of: Abdominal aortic aneurysm Cancer of colon Congestive heart failure Family history: Alzheimer's disease Family history: Arthritis Family history: Asthma Family history: Cardiovascular disease Family history: Diabetes mellitus Family history: Gastrointestinal disease Family history: Hypertension Family history: Thyroid disorder Heart disease Hereditary disease Parkinson's disease Prostate cancer Psychotic disorder Seizure disorder Physical Exam Vital Signs Vital Signs - First Documented 05/30/19 17:17 Temp 36.5 Pulse 124 Resp 24 B/P (MAP) 110/95 (100) Pulse Ox 95 O2 Delivery Room Air Capillary Refill : Less Than 3 Seconds Height/Weight/BMI Height: 5'11.00" Weight: 269lbs. oz. 122.505094qd; 29.00 BMI Method: General Appearance: WD/WN, mild distress HEENT: PERRL/EOMI, TMs normal, pharynx normal, scleral icterus (R), scleral icterus (L), other (oral mucosa pale and dry) Neck: non-tender, full range of motion, supple, normal inspection Respiratory: chest non-tender, lungs clear, normal breath sounds, no respiratory distress, other (Port, accessed to left chest wall. ) Cardiovascular: normal peripheral pulses, regular rate, rhythm Gastrointestinal: normal bowel sounds, distended, tenderness (generalized), hernia (LLQ, at site of colostomy. ), mass (at site of ileostomy and extending into the left upper and lower quadrants), other (Left colostomy, bag intact with soft to liquid stool present. ) Extremities: normal range of motion, non-tender, normal inspection, normal capillary refill Neurologic/Psychiatric: no motor/sensory deficits, alert, normal mood/affect, oriented x 3 Skin: warm/dry, jaundice Lymphatic: no adenopathy Focused Exam Lactate Level 05/30/19 17:30: Lactic Acid Level 2.80*H 05/30/19 19:30: Lactic Acid Level 1.61 Lactic Acid Level Laboratory Tests Test 05/30/19 17:30 05/30/19 19:30 Lactic Acid Level 2.80 MMOL/L (0.50-2.00) *H 1.61 MMOL/L (0.50-2.00) Progress/Results/Core Measures Results/Orders Lab Results Laboratory Tests Test 05/30/19 17:30 05/30/19 19:30 Range/Units White Blood Count 4.9 4.3-11.0 10^3/uL Red Blood Count 4.44 4.35-5.85 10^6/uL Hemoglobin 12.7 #L 13.3-17.7 G/DL Hematocrit 37 L 40-54 % Mean Corpuscular Volume 83 80-99 FL Mean Corpuscular Hemoglobin 29 25-34 PG Mean Corpuscular Hemoglobin Concent 34 32-36 G/DL Red Cell Distribution Width 14.5 10.0-14.5 % Platelet Count 344 130-400 10^3/uL Mean Platelet Volume 10.1 7.4-10.4 FL Neutrophils (%) (Auto) 78 H 42-75 % Lymphocytes (%) (Auto) 15 12-44 % Monocytes (%) (Auto) 6 0-12 % Eosinophils (%) (Auto) 1 0-10 % Basophils (%) (Auto) 0 0-10 % Neutrophils # (Auto) 3.8 1.8-7.8 X 10^3 Lymphocytes # (Auto) 0.7 L 1.0-4.0 X 10^3 Monocytes # (Auto) 0.3 0.0-1.0 X 10^3 Eosinophils # (Auto) 0.1 0.0-0.3 10^3/uL Basophils # (Auto) 0.0 0.0-0.1 10^3/uL Prothrombin Time 15.4 H 12.2-14.7 SEC INR Comment 1.2 0.8-1.4 Activated Partial Thromboplast Time 33 24-35 SEC Urine Color YELLOW Urine Clarity TURBID Urine pH 7.0 5-9 Urine Specific [place] 1.020 1.016-1.022 Urine Protein 3+ H NEGATIVE Urine Glucose (UA) NEGATIVE NEGATIVE Urine Ketones NEGATIVE NEGATIVE Urine Nitrite POSITIVE NEGATIVE Urine Bilirubin 1+ H NEGATIVE Urine Urobilinogen 0.2 < = 1.0 MG/DL Urine Leukocyte Esterase 2+ H NEGATIVE Urine RBC (Auto) 2+ H NEGATIVE Urine RBC 2-5 H /HPF Urine WBC >100 H /HPF Urine Squamous Epithelial Cells 2-5 /HPF Urine Crystals NONE /LPF Urine Bacteria LARGE H /HPF Urine Casts NONE /LPF Urine Mucus NEGATIVE /LPF Urine Culture Indicated YES Sodium Level 130 L 135-145 MMOL/L Potassium Level 3.6 3.6-5.0 MMOL/L Chloride Level 76 L 98-107 MMOL/L Carbon Dioxide Level 18 L 21-32 MMOL/L Anion Gap 36 H 5-14 MMOL/L Blood Urea Nitrogen 119 *H 7-18 MG/DL Creatinine 8.99 #H 0.60-1.30 MG/DL Estimat Glomerular Filtration Rate 6 BUN/Creatinine Ratio 13 Glucose Level 136 H 70-105 MG/DL Lactic Acid Level 2.80 *H 1.61 0.50-2.00 MMOL/L Calcium Level 9.5 8.5-10.1 MG/DL Corrected Calcium 8.5-10.1 MG/DL Magnesium Level 2.4 1.6-2.4 MG/DL Total Bilirubin 0.8 0.1-1.0 MG/DL Aspartate Amino Transf (AST/SGOT) 24 5-34 U/L Alanine Aminotransferase (ALT/SGPT) 15 0-55 U/L Alkaline Phosphatase 105 40-136 U/L Myoglobin 6034.5 H 10.0-92.0 NG/ML Troponin I 0.072 H <0.028 NG/ML Total Protein 10.3 H 6.4-8.2 GM/DL Albumin 4.7 H 3.2-4.5 GM/DL My Orders Orders - MCGARY Cbc With Automated Diff (05/30/19 17:14) Magnesium (05/30/19 17:14) Chest 1 View, Ap/Pa Only (05/30/19 17:14) Ekg Tracing (05/30/19 17:14) Comprehensive Metabolic Panel (05/30/19 17:14) Myoglobin Serum (05/30/19 17:14) Protime With Inr (05/30/19 17:14) Partial Thromboplastin Time (05/30/19 17:14) O2 (05/30/19 17:14) Monitor-Rhythm Ecg Trace Only (05/30/19 17:14) Ed Iv/Invasive Line Start (05/30/19 17:14) Troponin I (05/30/19 17:14) Ua Culture If Indicated (05/30/19 17:21) Blood Culture (05/30/19 17:21) Lactic Acid Analyzer (05/30/19 17:21) Ondansetron Injection (Zofran Injectio (05/30/19 17:30) Ed Iv/Invasive Line Start (05/30/19 17:25) Ns Iv 1000 Ml (Sodium Chloride 0.9%) (05/30/19 17:25) Fentanyl Injection (Sublimaze Injection (05/30/19 17:30) Ns Iv 1000 Ml (Sodium Chloride 0.9%) (05/30/19 17:23) Ct Chest/Abdomen/Pelvis Wo (05/30/19 17:32) Urine Culture (05/30/19 17:30) Ed Iv/Invasive Line Start (05/30/19 18:03) Ns Iv 1000 Ml (Sodium Chloride 0.9%) (05/30/19 18:03) Ed Iv/Invasive Line Start (05/30/19 19:38) Lactated Ringers (Lr 1000 Ml Iv Solution (05/30/19 19:38) Fentanyl Injection (Sublimaze Injection (05/30/19 20:15) Medications Given in ED Current Medications Medications Dose Ordered Sig/Paulina Route Start Time Stop Time Status Last Admin Dose Admin Fentanyl Citrate 25 mcg ONCE ONCE IVP 05/30/19 17:30 05/30/19 17:31 DC 05/30/19 17:32 25 MCG Fentanyl Citrate 25 mcg ONCE ONCE IVP 05/30/19 20:15 05/30/19 20:28 DC 05/30/19 20:17 25 MCG Lactated Ringer's 1,000 ml @ 0 mls/hr Q0M ONCE IV 05/30/19 19:38 05/30/19 19:41 DC 05/30/19 19:48 500 MLS/HR Ondansetron HCl 4 mg ONCE ONCE IVP 05/30/19 17:30 05/30/19 17:31 DC 05/30/19 17:30 4 MG Vital Signs/I&O 05/30/19 17:17 Temp 36.5 Pulse 124 Resp 24 B/P (MAP) 110/95 (100) Pulse Ox 95 O2 Delivery Room Air Blood Pressure Mean: 100 Progress Progress Note : Time: 17:15 Progress Note Patient seen and evaluated. He denies chest pain at this time. He is complaining of abdominal pain. Will obtain labs, chest x-ray, EKG and CT of the chest abdomen and pelvis. He already received aspirin prior to arrival, will not give nitro due to blood pressure and no chest pain at this time. 1744 patient complaining of abdominal pain, will give fentanyl 25 g IV and Zofran 4 mg IV for nausea. 1814 Labs discussed with patient, he wishes to remain a full code and have aggressive treatment. Patient requesting water to drink, will give ice chips 1829 Based on Creatinine of 8.99, he will need to be transferred to a higher level of care. Discussed at length with the patient and various family members by phone on options for treatment of the patient. Discussed considering hospice and comfort measures versus more aggressive care. They are all in agreement to proceed with higher level of care. Stressed that his prognosis is very poor and guarded. 1844 CT results discussed with the patient. No change in his request to continue aggressive treatment for kidney failure and cancer. [address] Martin at [facility], [facility]. Agreed to accept patient, ordered 500 ml of LR IV. 1999 Patient complains of recurring abdominal pain, will repeat Fentanyl. Patient to remain NPO, possible bowel obstruction. Continues to have BS in 4 quad. He is alert and oriented, family notified by phone of plan to transfer to [facility]. 2034 [facility] here to transfer patient. He reports pain is managed and no complaints at this time. Patient's daughter and brother notified of transfer by phone. Initial ECG Impression Date: May 30, 2019 Initial ECG Impression Time: 17:21 Initial ECG Rate: 120 Initial ECG Rhythm: S.Tach Initial ECG Intervals: Normal Initial ECG Intervals MA 116, QRSD 134, QT 324, QTc 458. [place] P 99, QRS -59, T 77. Initial ECG Comparisson: Changed Diagnostic Imaging Diagonstic Imaging: Xray Plain Films/CT/US/NM/MRI: chest Comments NAME: CHASITY DASILVA MED REC#: [id number] PT STATUS: REG ER : 1960 PHYSICIAN: GARY BENTLEY ADMIT DATE: 05/30/19/ER Draft Date of Exam:05/30/19 CHEST 1 VIEW, AP/PA ONLY INDICATION: Abdominal pain. History of colon cancer. COMPARISON: CT chest from 03/11/2019. EXAMINATION: Single frontal radiographic view of the chest was obtained. FINDINGS: Normal heart size and pulmonary vascularity. Evaluation of the lung gallo demonstrates 1.3 cm nodular opacity within the right infrahilar region. This corresponds to the pulmonary nodule seen in the right lower lobe on prior CT chest. Lungs are otherwise clear. There is no focal consolidation, large effusion and no pneumothorax. Osseous structures show no gross acute abnormality. IMPRESSION: 1. No acute cardiopulmonary process. 2. Redemonstration of micronodular density in the right lower lobe. Dictated on workstation # [id number] Dict: 05/30/191811 Trans: 05/30/191815 PJE [id number] Interpreted by: MARINO BOO MD Electronically signed by: Reviewed: Reviewed by Me Diagonstic Imaging: CT Plain Films/CT/US/NM/MRI: chest, abdomen, pelvis Comments NAME: CHASITY DASILVA [facility] REC#: [id number] PT STATUS: REG ER : 1960 PHYSICIAN: GARY BENTLEY ADMIT DATE: 05/30/19/ER Draft Date of Exam:05/30/19 CT CHEST/ABDOMEN/PELVIS WO PROCEDURE: CT chest, abdomen and pelvis without contrast. TECHNIQUE: Multiple contiguous axial images were obtained through the chest, abdomen, and pelvis without the use of intravenous contrast. Auto Exposure Controls were utilized during the CT exam to meet ALARA standards for radiation dose reduction. INDICATION: Abdominal pain. Nausea and vomiting. History of colorectal cancer. COMPARISON: 03/11/2019. FINDINGS: CT chest: Evaluation of the lung gallo demonstrates a 1.3 cm nodular density within the superior segment of the right lower lobe (image 35, series 2). This is stable compared to 1.2 cm on prior exam. 6 mm micronodule is also noted within the medial segment of the right middle lobe. This too is stable compared to 5 mm previously. No new suspicious pulmonary nodule or mass is identified. There is no focal consolidation, large effusion or pneumothorax. Cardiomediastinal structures show normal heart size. There is mild to moderate scattered calcified coronary atherosclerosis. Fluid is noted within the esophagus. No pathologically enlarged or morphologically abnormal adenopathy is seen within the mediastinum, curt or axilla on this noncontrast exam. Left-sided subclavian Port-A-Cath is noted. Osseous structures show age-related degenerative changes. No acute bony abnormality is seen. CT abdomen: Large left-sided parastomal hernia is again identified. It contains multiple loops of both distended and nondistended small bowel. There may be focal transition point within the herniated portion of bowel. Note is made of severe distention of the more proximal jejunum and duodenum. Proximal jejunum measures approximately 5.1 cm in diameter. Decompressed more distal intra-abdominal small bowel loops are also noted. There is no pneumatosis, pneumoperitoneum or portal venous gas. Indwelling left-sided percutaneous nephrostomy tube is identified. Patency of the tube cannot be assessed, but there is no hydroureteronephrosis on either side. No focal renal masses are seen on this noncontrast exam. There is gallbladder hydrops. Gallbladder measures 6 cm in diameter. Please note, CT is suboptimal to assess for cholelithiasis. The liver, spleen, pancreas and adrenal glands have an unremarkable noncontrast CT appearance. There is no free fluid or loculated air-fluid collection within the abdomen. No abnormal retroperitoneal or mesenteric adenopathy is seen. CT pelvis: There is a large mass within the posterior pelvis eroding into and destroying portions of the sacrum. The mass measures approximately 13.4 x 6.5 cm. This is not significantly changed compared to prior exam. Left pelvic sidewall mass/enlarged lymph node is also noted. It measures 3.4 x 2.2 cm, also not significantly changed compared to 3.3 x 2.1 cm previously. Ibarra catheter is present within the urinary bladder. Urinary bladder is decompressed. There is metallic wire of uncertain significance extending from the urinary bladder superiorly, anterior to the sacrum and lower lumbar spine. IMPRESSION: 1. Redemonstration of a large left-sided parastomal hernia. 2. Interval development of multiple distended loops of small bowel within the peristomal hernia. This does raise concern interval development of obstruction related to the hernia. 3. Gallbladder hydrops. 4. Indwelling left-sided Mellen nephrostomy tube, as above. 5. Redemonstration of large pelvic mass destroying portions of the sacrum and left iliac bone. 6. Stable right middle and right lower lobe soft tissue nodule/micronodules concerning for metastatic disease. 7. No new acute cardiopulmonary process. Dictated on workstation # [id number] Dict: 05/30/19 1818 Trans: 05/30/19 1839 [facility] [id number] Interpreted by: MARINO BOO MD Electronically signed by: Reviewed: Reviewed by Me Departure Impression Primary Impression: Abdominal pain Qualified Codes: R10.84 - Generalized abdominal pain Additional Impressions: Acute kidney failure Qualified Codes: N17.9 - Acute kidney failure, unspecified Metastatic colorectal cancer Nausea and vomiting Qualified Codes: R11.14 - Bilious vomiting Disposition: XFER SHT-TRM HOSP Condition: Critical Transfer Transfer Reason: Exceeds level of care Time Spoke to Accepting Phy: 19:30 Transfer Progress Notes Spoke to Dr. Martin Transfer Time: 20:40 Transfer Facility: [facility] [place] Method of Transfer: EMS Departure-Patient Inst. Referrals: JESSICA MORGAN MD (PCP) Primary Care Physician LESLIE SEAMAN MD (Family) Primary Care Physician Copy Copies To 1: JESSICA MORGAN MD; CRUZ HENRY MD, AMY ARNP May 30, 2019 17:49
[2019-05-30 17:51] LABS: CLARITY,URINE TURBID; COLOR,URINE YELLOW; GLUCOSE, URINE (UA) NEGATIVE (NEGATIVE); KETONES,URINE NEGATIVE (NEGATIVE); LEUKOCYTE ESTERASE ,URINE 2+ (NEGATIVE); NITRITE,URINE POSITIVE (NEGATIVE); PROTEIN,URINE 3+ (NEGATIVE)
[2019-05-30 17:52] LABS: INR 1.2 (0.8-1.4); PROTHROMBIN TIME PATIENT 15.4 SEC (12.2-14.7)
[2019-05-30 17:59] LABS: BACTERIA,URINE LARGE /HPF; BILIRUBIN,URINE 1+ (NEGATIVE); WBC,URINE >100 /HPF
[2019-05-30 18:02] LABS: ALANINE AMINOTRANSFERASE 15 U/L (0-55); ALBUMIN 4.7 GM/DL (3.2-4.5); ALKALINE PHOSPHATASE 105 U/L (40-136); BILIRUBIN,TOTAL 0.8 MG/DL (0.1-1.0); BUN/CREATININE RATIO 13; CALCIUM 9.5 MG/DL (8.5-10.1); CARBON DIOXIDE 18 MMOL/L (21-32); CHLORIDE 76 MMOL/L (98-107); CREATININE SERUM 8.99 MG/DL (0.60-1.30); GFR ESTIMATED 6; GLUCOSE 136 MG/DL (70-105); MAGNESIUM 2.4 MG/DL (1.6-2.4); POTASSIUM 3.6 MMOL/L (3.6-5.0); SODIUM 130 MMOL/L (135-145); TOTAL PROTEIN 10.3 GM/DL (6.4-8.2)
--- NOTE | 2019-05-30 18:16 | Diagnostic Imaging Report ---
INDICATION: Abdominal pain. History of colon cancer. COMPARISON: CT chest from 03/11/2019. EXAMINATION: Single frontal radiographic view of the chest was obtained. FINDINGS: Normal heart size and pulmonary vascularity. Evaluation of the lung gallo demonstrates 1.3 cm nodular opacity within the right infrahilar region. This corresponds to the pulmonary nodule seen in the right lower lobe on prior CT chest. Lungs are otherwise clear. There is no focal consolidation, large effusion and no pneumothorax. Osseous structures show no gross acute abnormality. IMPRESSION: 1. No acute cardiopulmonary process. 2. Redemonstration of micronodular density in the right lower lobe. Dictated by: Dictated on workstation # [id number]
--- NOTE | 2019-05-30 18:40 | Diagnostic Imaging Report ---
PROCEDURE: CT chest, abdomen and pelvis without contrast. TECHNIQUE: Multiple contiguous axial images were obtained through the chest, abdomen, and pelvis without the use of intravenous contrast. Auto Exposure Controls were utilized during the CT exam to meet ALARA standards for radiation dose reduction. INDICATION: Abdominal pain. Nausea and vomiting. History of colorectal cancer. COMPARISON: 03/11/2019. FINDINGS: CT chest: Evaluation of the lung gallo demonstrates a 1.3 cm nodular density within the superior segment of the right lower lobe (image 35, series 2). This is stable compared to 1.2 cm on prior exam. 6 mm micronodule is also noted within the medial segment of the right middle lobe. This too is stable compared to 5 mm previously. No new suspicious pulmonary nodule or mass is identified. There is no focal consolidation, large effusion or pneumothorax. Cardiomediastinal structures show normal heart size. There is mild to moderate scattered calcified coronary atherosclerosis. Fluid is noted within the esophagus. No pathologically enlarged or morphologically abnormal adenopathy is seen within the mediastinum, curt or axilla on this noncontrast exam. Left-sided subclavian Port-A-Cath is noted. Osseous structures show age-related degenerative changes. No acute bony abnormality is seen. CT abdomen: Large left-sided parastomal hernia is again identified. It contains multiple loops of both distended and nondistended small bowel. There may be focal transition point within the herniated portion of bowel. Note is made of severe distention of the more proximal jejunum and duodenum. Proximal jejunum measures approximately 5.1 cm in diameter. Decompressed more distal intra-abdominal small bowel loops are also noted. There is no pneumatosis, pneumoperitoneum or portal venous gas. Indwelling left-sided percutaneous nephrostomy tube is identified. Patency of the tube cannot be assessed, but there is no hydroureteronephrosis on either side. No focal renal masses are seen on this noncontrast exam. There is gallbladder hydrops. Gallbladder measures 6 cm in diameter. Please note, CT is suboptimal to assess for cholelithiasis. The liver, spleen, pancreas and adrenal glands have an unremarkable noncontrast CT appearance. There is no free fluid or loculated air-fluid collection within the abdomen. No abnormal retroperitoneal or mesenteric adenopathy is seen. CT pelvis: There is a large mass within the posterior pelvis eroding into and destroying portions of the sacrum. The mass measures approximately 13.4 x 6.5 cm. This is not significantly changed compared to prior exam. Left pelvic sidewall mass/enlarged lymph node is also noted. It measures 3.4 x 2.2 cm, also not significantly changed compared to 3.3 x 2.1 cm previously. Ibarra catheter is present within the urinary bladder. Urinary bladder is decompressed. There is metallic wire of uncertain significance extending from the urinary bladder superiorly, anterior to the sacrum and lower lumbar spine. IMPRESSION: 1. Redemonstration of a large left-sided parastomal hernia. 2. Interval development of multiple distended loops of small bowel within the peristomal hernia. This does raise concern interval development of obstruction related to the hernia. 3. Gallbladder hydrops. 4. Indwelling left-sided [place] nephrostomy tube, as above. 5. Redemonstration of large pelvic mass destroying portions of the sacrum and left iliac bone. 6. Stable right middle and right lower lobe soft tissue nodule/micronodules concerning for metastatic disease. 7. No new acute cardiopulmonary process. Dictated by: Dictated on workstation # [id number]
--- NOTE | 2019-05-30 18:57 | NUR ---
Report received from Victorino Romano RN
[2019-05-30] MEDS ORDERED: LACTATED RINGERS 1,000 ML IV ONE (19:38)
--- NOTE | 2019-05-30 20:11 | NUR ---
Report to BRODIE Amor at [facility] at this time.
[2019-05-30 20:42] VITALS: BP 156/95
== END 2019-05-30 20:42 | disposition short-term general hospital (02) ==
LOC: EDUNIT# 17:12 → ER 17:13
DX: N17.9 Acute kidney failure, unspecified (principal); C19 Malignant neoplasm of rectosigmoid junction; C79.51 Secondary malignant neoplasm of bone; C78.00 Secondary malignant neoplasm of unspecified lung; L89.322 Pressure ulcer of left buttock, stage 2; Z87.891 Personal history of nicotine dependence; Z98.1 Arthrodesis status; Z93.3 Colostomy status; Z80.3 Family history of malignant neoplasm of breast; Z80.0 Family history of malignant neoplasm of digestive organs; Z93.2 Ileostomy status
CPT/HCPCS: 36415; 51702; 71045; 71250; 74176; 80053; 81000; 83605; 83735; 83874; 84484; 85025; 85610; 85730; 87040; 87088; 93005; 93041; 96361; 96374; 96375; 96376

== ENCOUNTER 2019-06-14 11:34 | Emergency (ER) | payer MEDICARE, MEDICAID ==
[~2019-06-14] VITALS: Ht 180 cm; Wt 91.0 kg
--- NOTE | 2019-06-14 12:03 | ED General ---
General Chief Complaint: General Problems/Pain Stated Complaint: RENAL FAILURE Nursing Triage Note: PT TO [facility] WITH CC OF ELEVATED LAB VALUES AND NEED FOR DIALYSIS. HX OF COLON CA AND KIDNEY FAILURE. Nursing Sepsis Screen: No Definite Risk Source of Information: Patient, EMS Exam Limitations: No Limitations History of Present Illness Date Seen by Provider: Jun 14, 2019 Time Seen by Provider: 11:59 Initial Comments To ER per EMS from [facility] [place] with reports of abnormal labs 3 days ago. He is asymptomatic. History of chronic kidney disease With concern for acute kidney injury. History of colon cancer treated with chemoradiation in September 2013, abdominal perineal resection on November 2013. He was then restarted on chemotherapy on 05/25/19 that was his most recent treatment. He was admitted at [facility] on 05/30/19. Severity: Moderate Associated Systoms: Weakness Allergies and Home Medications Allergies Coded Allergies: No Known Drug Allergies (Unverified , 08/02/13) Home Medications Fentanyl 1 Each Patch.td72, 50 MCG TD Q72H, (Reported) Melatonin/Pyridoxine HCl (B6) 1 Each Tablet, 3 MG PO HS, (Reported) Multivitamin with Minerals 1 Each Tablet, 1 EACH PO DAILY, (Reported) Oxycodone HCl/Acetaminophen 1 Each Tablet, 1 EACH PO Q4H PRN for PAIN-SEVERE, (Reported) Patiromer Calcium Sorbitex 8.4 Gm Powd.pack, 8.4 GM PO DAILY, (Reported) Phenazopyridine HCl 200 Mg Tablet, 1 TAB PO TID PRN for SPASMS Prescribed by: IDA PEREZ on 03/16/19 1348 Sertraline HCl 50 Mg Tablet, 50 MG PO DAILY, (Reported) Sulfamethoxazole/Trimethoprim 1 Each Tablet, 1 EACH PO BID Prescribed by: IDA PEREZ on 03/16/19 1348 Tamsulosin HCl 0.4 Mg Cap, 0.4 MG PO DAILY Prescribed by: IDA PEREZ on 03/16/19 1348 Patient Home Medication List Home Medication List Reviewed: Yes Review of Systems Review of Systems Constitutional: see HPI EENTM: see HPI Respiratory: no symptoms reported Cardiovascular: no symptoms reported Musculoskeletal: no symptoms reported Skin: no symptoms reported Psychiatric/Neurological: No Symptoms Reported Hematologic/Lymphatic: No Symptoms Reported Past Xogjbad-Uxytzn-Bykgyy Hx Patient Social History Alcohol Use: Denies Use Recreational Drug Use: Yes (OCCASIONAL MARIJUANA USE) Drug of Choice: Marijuana Smoking Status: Former Smoker Type Used: Cigarettes Former Smoker, Quit: May 19, 2017 2nd Hand Smoke Exposure: No Recent Foreign Travel: No Contact w/Someone Who Travel: No Recent Infectious Disease Expo: No Recent Hopitalizations: Yes (KIDNEY ISSUES) Physical Abuse: No Sexual Abuse: No Mistreated: No Fear: No Immunizations Up To Date Tetanus Booster (TDap): More than 5yrs PED Vaccines UTD: No Date of Pneumonia Vaccine: Aug 02, 2009 Date of Influenza Vaccine: Feb 17, 2019 Seasonal Allergies Seasonal Allergies: No Past Medical History Surgeries: Yes (SPINAL FUSION, Colostomy, AP resection) Bowel Surgery Respiratory: No Cardiac: No Neurological: No Genitourinary: Yes (Incontinence) Renal Failure Gastrointestinal: Yes (RECTOANAL CA) Musculoskeletal: Yes (ARTHRITIS) Arthritis, Chronic Back Pain Endocrine: No HEENT: No Cancer: Yes Rectal, Bone, Lung Did You Recieve Any Treatments: Yes Psychosocial: No Integumentary: Yes (pressure ulcer on left buttock stage 2) Blood Disorders: No Family Medical History Alcoholism 19 FATHER 19 MOTHER Cancer 19 MOTHER (BREAST) G8 BROTHER (STOMACH) G8 SISTER (BREAST) Family history: Breast disease 19 MOTHER Myocardial infarction 19 FATHER Stroke 19 FATHER No Family History of: Abdominal aortic aneurysm Cancer of colon Congestive heart failure Family history: Alzheimer's disease Family history: Arthritis Family history: Asthma Family history: Cardiovascular disease Family history: Diabetes mellitus Family history: Gastrointestinal disease Family history: Hypertension Family history: Thyroid disorder Heart disease Hereditary disease Parkinson's disease Prostate cancer Psychotic disorder Seizure disorder Physical Exam Vital Signs Vital Signs - First Documented 06/14/19 11:46 Temp 36.7 Pulse 92 Resp 16 B/P (MAP) 128/75 (92) Pulse Ox 98 O2 Delivery Room Air Capillary Refill : Less Than 3 Seconds Height, Weight, BMI Height: 5'11.00" Weight: 269lbs. oz. 122.815238qi; 28.00 BMI Method: General Appearance: No Apparent Distress, WD/WN Eyes: Bilateral Eye Normal Inspection, Bilateral Eye PERRL, Bilateral Eye EOMI HEENT: PERRL/EOMI Respiratory: Lungs Clear, Normal Breath Sounds, No Accessory Muscle Use, No Respiratory Distress Cardiovascular: Regular Rate, Rhythm, Normal Peripheral Pulses Gastrointestinal: Normal Bowel Sounds, Non Tender, Soft Extremity: Normal Capillary Refill, Normal Inspection Neurologic/Psychiatric: Alert, Oriented x3, No Motor/Sensory Deficits Skin: Normal Color, Warm/Dry Progress/Results/Core Measures Suspected Sepsis Recent Fever Within 48 Hours: No Infection Criteria Present: None New/Unexplained Altered Menta: No Sepsis Screen: No Definite Risk SIRS Temperature: Pulse: 92 Respiratory Rate: 16 Laboratory Tests 06/14/19 12:40: White Blood Count 4.4 Blood Pressure 128 /75 Mean: 92 Laboratory Tests 06/14/19 12:40: Creatinine 4.85#H, Platelet Count 312, Total Bilirubin 0.5 Results/Orders Lab Results Laboratory Tests Test 06/14/19 12:40 Range/Units White Blood Count 4.4 4.3-11.0 10^3/uL Red Blood Count 2.65 L 4.35-5.85 10^6/uL Hemoglobin 7.8 L 13.3-17.7 G/DL Hematocrit 23 L 40-54 % Mean Corpuscular Volume 85 80-99 FL Mean Corpuscular Hemoglobin 29 25-34 PG Mean Corpuscular Hemoglobin Concent 35 32-36 G/DL Red Cell Distribution Width 15.8 H 10.0-14.5 % Platelet Count 312 130-400 10^3/uL Mean Platelet Volume 8.5 7.4-10.4 FL Neutrophils (%) (Auto) 68 42-75 % Lymphocytes (%) (Auto) 15 12-44 % Monocytes (%) (Auto) 16 H 0-12 % Eosinophils (%) (Auto) 1 0-10 % Basophils (%) (Auto) 0 0-10 % Neutrophils # (Auto) 3.0 1.8-7.8 X 10^3 Lymphocytes # (Auto) 0.6 L 1.0-4.0 X 10^3 Monocytes # (Auto) 0.7 0.0-1.0 X 10^3 Eosinophils # (Auto) 0.1 0.0-0.3 10^3/uL Basophils # (Auto) 0.0 0.0-0.1 10^3/uL Sodium Level 132 L 135-145 MMOL/L Potassium Level 3.6 3.6-5.0 MMOL/L Chloride Level 110 H 98-107 MMOL/L Carbon Dioxide Level 13 L 21-32 MMOL/L Anion Gap 9 5-14 MMOL/L Blood Urea Nitrogen 62 H 7-18 MG/DL Creatinine 4.85 #H 0.60-1.30 MG/DL Estimat Glomerular Filtration Rate 12 BUN/Creatinine Ratio 13 Glucose Level 108 H 70-105 MG/DL Calcium Level 8.6 8.5-10.1 MG/DL Corrected Calcium 9.2 8.5-10.1 MG/DL Total Bilirubin 0.5 0.1-1.0 MG/DL Aspartate Amino Transf (AST/SGOT) 21 5-34 U/L Alanine Aminotransferase (ALT/SGPT) 16 0-55 U/L Alkaline Phosphatase 187 H 40-136 U/L Total Protein 6.9 6.4-8.2 GM/DL Albumin 3.2 3.2-4.5 GM/DL My Orders Orders - ALLIE SEQUEIRA APRN Cbc With Automated Diff (06/14/19 11:49) Comprehensive Metabolic Panel (06/14/19 11:49) Ekg Tracing (06/14/19 11:49) Chest 1 View, Ap/Pa Only (06/14/19 12:08) Vital Signs/I&O 06/14/19 11:46 Temp 36.7 Pulse 92 Resp 16 B/P (MAP) 128/75 (92) Pulse Ox 98 O2 Delivery Room Air Capillary Refill : Less Than 3 Seconds Blood Pressure Mean: 92 Departure Communication (Admissions) Dr Dalton accepted pt to [facility]. Impression Primary Impression: Renal failure Qualified Codes: N17.9 - Acute kidney failure, unspecified Additional Impression: Anemia Qualified Codes: D64.9 - Anemia, unspecified Disposition: 02 XFER SHT-TRM HOSP Condition: Stable Departure-Patient Inst. Referrals: JESSICA MORGAN MD (PCP/Family) Primary Care Physician ALLIE SEQUEIRA APRN Jun 14, 2019 12:03
--- NOTE | 2019-06-14 12:48 | Diagnostic Imaging Report ---
INDICATION: Abnormal lab values, history of colon cancer and renal failure. COMPARISON: May 30, 2019. TECHNIQUE: Single radiograph of the chest dated June 14, 2019. FINDINGS: The cardiac silhouette is within normal limits in size. No significant pulmonary vascular congestion. 1.3 cm pulmonary nodule within the right basilar location is unchanged from the prior exam. No new focal pulmonary opacity. No pleural effusion. No pneumothorax. Port-A-Cath is present with the distal tip overlying the lower aspect of the superior vena cava. No acute osseous abnormality. IMPRESSION: Stable 1.3 cm right basilar pulmonary nodule remaining suspicious for metastatic disease. No superimposed acute cardiopulmonary abnormality. Dictated by: Dictated on workstation # [id number]
[2019-06-14 13:04] LABS: BASOPHILS % (AUTO) 0 % (0-10); EOSINOPHILS # (AUTO) 0.1 10^3/uL (0.0-0.3); EOSINOPHILS % (AUTO) 1 % (0-10); HEMATOCRIT 23 % (40-54); HEMOGLOBIN 7.8 G/DL (13.3-17.7); LYMPHOCYTES # (AUTO) 0.6 X 10^3 (1.0-4.0); LYMPHOCYTES % (AUTO) 15 % (12-44); MEAN CORPUSCULAR HEMOGLOBIN 29 PG (25-34); MEAN CORPUSCULAR HGB CONC 35 G/DL (32-36); MEAN CORPUSCULAR VOLUME 85 FL (80-99); MEAN PLATELET VOLUME 8.5 FL (7.4-10.4); MONOCYTES # (AUTO) 0.7 X 10^3 (0.0-1.0); MONOCYTES % (AUTO) 16 % (0-12); NEUTROPHILS % (AUTO) 68 % (42-75); PLATELET COUNT 312 10^3/uL (130-400); RED CELL DISTRIBUTION WIDTH 15.8 % (10.0-14.5); WHITE BLOOD COUNT 4.4 10^3/uL (4.3-11.0)
[2019-06-14 13:22] LABS: ALBUMIN 3.2 GM/DL (3.2-4.5); BILIRUBIN,TOTAL 0.5 MG/DL (0.1-1.0); CALCIUM 8.6 MG/DL (8.5-10.1); CREATININE SERUM 4.85 MG/DL (0.60-1.30); POTASSIUM 3.6 MMOL/L (3.6-5.0); TOTAL PROTEIN 6.9 GM/DL (6.4-8.2)
[2019-06-14] MEDS ORDERED: oxyCODONE/APAP 10/325MG (PERCOCET 10) TABLET PO ONE (16:30)
[2019-06-14 16:52] VITALS: BP 110/56
== END 2019-06-14 16:52 | disposition short-term general hospital (02) ==
LOC: EDUNIT# 11:34 → ER 11:35
DX: N17.9 Acute kidney failure, unspecified (principal); D64.9 Anemia, unspecified; Z87.891 Personal history of nicotine dependence; Z85.048 Personal history of other malignant neoplasm of rectum, rectosigmoid junction, and anus; Z85.830 Personal history of malignant neoplasm of bone; Z85.118 Personal history of other malignant neoplasm of bronchus and lung; Z80.3 Family history of malignant neoplasm of breast; Z80.0 Family history of malignant neoplasm of digestive organs
CPT/HCPCS: 36415; 71045; 80053; 85025; 93005

== ENCOUNTER → 2019-07-16 | Outpatient (CLI) | payer MEDICARE, MEDICAID ==
--- NOTE | 2019-07-16 13:13 | Diagnostic Imaging Report ---
PROCEDURE: US Renal Bilateral. TECHNIQUE: Multiple real-time grayscale images were obtained over the kidneys in various projections bilaterally. INDICATION: Bilateral ureteral obstruction. FINDINGS: Right kidney measures 9.2 x 5.1 x 5.8 cm and the left kidney measures 8.5 x 2.5 x 2.5 cm. There appears to be moderate hydronephrosis of the right kidney. Cortical thickness and echogenicity is normal. Left kidney is slightly smaller and appears to contain a nephrostomy tube. There is no hydronephrosis. Bladder is decompressed. There is some mild distention to the gallbladder but no stones are detected. IMPRESSION: Moderate right-sided hydronephrosis. No other significant abnormality is seen. Dictated by: Dictated on workstation # [id number]
== END ==
LOC: RAD 12:15
PROVIDERS: ATTEND Urology
DX: N13.1 Hydronephrosis with ureteral stricture, not elsewhere classified (principal)
CPT/HCPCS: 76770

== ENCOUNTER → 2019-08-16 | Outpatient (CLI) | payer MEDICARE, MEDICAID ==
--- NOTE | 2019-08-16 12:06 | Diagnostic Imaging Report ---
PROCEDURE: CT chest, abdomen, and pelvis without contrast. TECHNIQUE: Multiple contiguous axial images were obtained through the chest, abdomen, and pelvis without the use of intravenous contrast. Auto Exposure Controls were utilized during the CT exam to meet ALARA standards for radiation dose reduction. INDICATION: Colorectal carcinoma with some abdominal and pelvic pain. COMPARISON: Correlation is made with prior CT from 05/30/2019. FINDINGS: CT chest: Left chest wall port has its tip in the SVC. No axillary lymphadenopathy is identified. No definite mediastinal or hilar lymphadenopathy is detected. No pericardial or pleural fluid is identified. Previously noted nodule in the medial aspect of the right middle lobe measures 5 mm compared with 6 mm on prior. The larger nodule in the superior segment of the right lower lobe, measures 10 mm compared with 13 mm on prior exam. No new or enlarging pulmonary nodules are identified. IMPRESSION: Decrease in size of right middle lobe and right lower lobe pulmonary nodule since prior CT from 05/30/2019. No new or enlarging pulmonary nodules or evidence of thoracic lymphadenopathy is detected. CT abdomen and pelvis: No discrete liver mass is detected. Gallbladder is unremarkable. No biliary ductal dilatation is detected. Pancreas and spleen are unremarkable. No adrenal mass is detected. Left kidney again contains a percutaneous nephrostomy tube of the right kidney does show some dilatation of the right renal collecting system and right ureter. There is a nephroureteral stent on the right side, however the stent has the proximal component at the level of the mid right ureter and the distal portion is moderately caught in the bladder. Aorta is non-aneurysmal. A large left lower quadrant ostomy with peristomal hernia is again noted. Numerous bowel loops within the hernia sac are again noted. No definite dilatation of the bowel is seen on today's study. Intra-abdominal bowel loops are also normal caliber. No definite obstruction is seen. No free fluid or fluid collection is identified. No central retroperitoneal or mesenteric lymphadenopathy is seen. The destructive lesion involving the sacrum and left iliac bone is again noted. There is extraosseous soft tissue component which appears similar to prior exam. No inguinal lymphadenopathy is seen. IMPRESSION: 1. A large left lower quadrant parastomal hernia. No bowel obstruction or strangulation is seen. 2. Right double-J nephroureteral stent continues to be somewhat low in position but similar to exam from May 2019. There is some mild right-sided hydroureteronephrosis. 3. Bony destructive soft tissue mass involving the sacrum and left iliac bone, similar to prior exam. No new abnormality is seen. Dictated by: Dictated on workstation # [id number]
== END ==
LOC: RAD 10:31
PROVIDERS: ATTEND Internal Medicine Hematology & Oncology
DX: C20 Malignant neoplasm of rectum (principal); R91.8 Other nonspecific abnormal finding of lung field; N13.30 Unspecified hydronephrosis; K43.5 Parastomal hernia without obstruction or gangrene
CPT/HCPCS: 71250; 74176

== ENCOUNTER 2019-08-25 10:52 | Outpatient (RCR) | payer MEDICARE, MEDICAID ==
[2019-06-09 09:31] LABS: BASOPHILS % (AUTO) 1 % (0-10); EOSINOPHILS # (AUTO) 0.1 10^3/uL (0.0-0.3); EOSINOPHILS % (AUTO) 2 % (0-10); HEMATOCRIT 28 % (40-54); HEMOGLOBIN 9.2 G/DL (13.3-17.7); LYMPHOCYTES # (AUTO) 1.1 X 10^3 (1.0-4.0); LYMPHOCYTES % (AUTO) 28 % (12-44); MEAN CORPUSCULAR HEMOGLOBIN 29 PG (25-34); MEAN CORPUSCULAR HGB CONC 33 G/DL (32-36); MEAN CORPUSCULAR VOLUME 88 FL (80-99); MEAN PLATELET VOLUME 8.8 FL (7.4-10.4); MONOCYTES # (AUTO) 0.5 X 10^3 (0.0-1.0); MONOCYTES % (AUTO) 14 % (0-12); NEUTROPHILS # (AUTO) 2.1 X 10^3 (1.8-7.8); NEUTROPHILS % (AUTO) 55 % (42-75); PLATELET COUNT 292 10^3/uL (130-400); RED CELL DISTRIBUTION WIDTH 14.2 % (10.0-14.5); WHITE BLOOD COUNT 3.8 10^3/uL (4.3-11.0)
[2019-06-09 09:50] LABS: ALBUMIN 3.5 GM/DL (3.2-4.5); BILIRUBIN,TOTAL 0.4 MG/DL (0.1-1.0); CALCIUM 8.9 MG/DL (8.5-10.1); CREATININE SERUM 5.1 MG/DL (0.60-1.30); POTASSIUM 3.5 MMOL/L (3.6-5.0); TOTAL PROTEIN 7.9 GM/DL (6.4-8.2)
[2019-06-09 09:51] LABS: MAGNESIUM 1.1 MG/DL (1.6-2.4)
[2019-06-11 09:39] LABS: CALCIUM 8.9 MG/DL (8.5-10.1); CREATININE SERUM 5.39 MG/DL (0.60-1.30); MAGNESIUM 1.6 MG/DL (1.6-2.4)
[2019-07-02 09:19] LABS: BASOPHILS % (AUTO) 0 % (0-10); EOSINOPHILS # (AUTO) 0.2 10^3/uL (0.0-0.3); EOSINOPHILS % (AUTO) 4 % (0-10); HEMATOCRIT 27 % (40-54); HEMOGLOBIN 8.4 G/DL (13.3-17.7); LYMPHOCYTES % (AUTO) 17 % (12-44); MEAN CORPUSCULAR HEMOGLOBIN 29 PG (25-34); MEAN CORPUSCULAR HGB CONC 31 G/DL (32-36); MEAN CORPUSCULAR VOLUME 93 FL (80-99); MEAN PLATELET VOLUME 8.9 FL (7.4-10.4); MONOCYTES # (AUTO) 0.5 X 10^3 (0.0-1.0); MONOCYTES % (AUTO) 9 % (0-12); NEUTROPHILS % (AUTO) 70 % (42-75); PLATELET COUNT 237 10^3/uL (130-400); RED CELL DISTRIBUTION WIDTH 15.2 % (10.0-14.5); WHITE BLOOD COUNT 5.8 10^3/uL (4.3-11.0)
[2019-07-02 09:37] LABS: ALANINE AMINOTRANSFERASE < 6 U/L (0-55); ALBUMIN 2.8 GM/DL (3.2-4.5); ALKALINE PHOSPHATASE 102 U/L (40-136); BILIRUBIN,TOTAL 0.4 MG/DL (0.1-1.0); BUN/CREATININE RATIO 10; CALCIUM 8.5 MG/DL (8.5-10.1); CARBON DIOXIDE 25 MMOL/L (21-32); CHLORIDE 104 MMOL/L (98-107); CREATININE SERUM 3.15 MG/DL (0.60-1.30); GFR ESTIMATED 20; GLUCOSE 99 MG/DL (70-105); POTASSIUM 4.2 MMOL/L (3.6-5.0); SODIUM 136 MMOL/L (135-145); TOTAL PROTEIN 6.6 GM/DL (6.4-8.2)
[2019-07-07 12:59] LABS: BASOPHILS % (AUTO) 1 % (0-10); EOSINOPHILS # (AUTO) 0.3 10^3/uL (0.0-0.3); EOSINOPHILS % (AUTO) 6 % (0-10); HEMATOCRIT 27 % (40-54); HEMOGLOBIN 8.9 G/DL (13.3-17.7); LYMPHOCYTES # (AUTO) 1.4 X 10^3 (1.0-4.0); LYMPHOCYTES % (AUTO) 26 % (12-44); MEAN CORPUSCULAR HEMOGLOBIN 30 PG (25-34); MEAN CORPUSCULAR HGB CONC 33 G/DL (32-36); MEAN CORPUSCULAR VOLUME 90 FL (80-99); MEAN PLATELET VOLUME 9.4 FL (7.4-10.4); MONOCYTES # (AUTO) 0.6 X 10^3 (0.0-1.0); MONOCYTES % (AUTO) 12 % (0-12); NEUTROPHILS % (AUTO) 56 % (42-75); PLATELET COUNT 285 10^3/uL (130-400); RED CELL DISTRIBUTION WIDTH 15.4 % (10.0-14.5); WHITE BLOOD COUNT 5.3 10^3/uL (4.3-11.0)
[2019-07-07 13:23] LABS: ALBUMIN 3.1 GM/DL (3.2-4.5); BILIRUBIN,TOTAL 0.3 MG/DL (0.1-1.0); CALCIUM 8.6 MG/DL (8.5-10.1); CREATININE SERUM 2.76 MG/DL (0.60-1.30); MAGNESIUM 1.6 MG/DL (1.6-2.4); POTASSIUM 3.8 MMOL/L (3.6-5.0); TOTAL PROTEIN 7.2 GM/DL (6.4-8.2)
[2019-07-21 12:11] LABS: BASOPHILS % (AUTO) 0 % (0-10); EOSINOPHILS % (AUTO) 1 % (0-10); HEMATOCRIT 25 % (40-54); LYMPHOCYTES % (AUTO) 17 % (12-44); MEAN CORPUSCULAR HEMOGLOBIN 30 PG (25-34); MEAN CORPUSCULAR HGB CONC 36 G/DL (32-36); MEAN CORPUSCULAR VOLUME 83 FL (80-99); MEAN PLATELET VOLUME 8.2 FL (7.4-10.4); MONOCYTES % (AUTO) 17 % (0-12); NEUTROPHILS # (AUTO) 3.9 X 10^3 (1.8-7.8); NEUTROPHILS % (AUTO) 65 % (42-75); PLATELET COUNT 292 10^3/uL (130-400); RED CELL DISTRIBUTION WIDTH 15.2 % (10.0-14.5)
[2019-07-21 12:32] LABS: ALBUMIN 3.1 GM/DL (3.2-4.5); BILIRUBIN,TOTAL 0.3 MG/DL (0.1-1.0); CALCIUM 8.4 MG/DL (8.5-10.1); CREATININE SERUM 2.73 MG/DL (0.60-1.30); MAGNESIUM 1.6 MG/DL (1.6-2.4); POTASSIUM 2.8 MMOL/L (3.6-5.0); TOTAL PROTEIN 7.2 GM/DL (6.4-8.2)
[2019-07-23 14:10] LABS: CALCIUM 8.2 MG/DL (8.5-10.1); CREATININE SERUM 2.33 MG/DL (0.60-1.30); POTASSIUM 3.5 MMOL/L (3.6-5.0)
[2019-08-04 13:25] LABS: BASOPHILS % (AUTO) 1 % (0-10); EOSINOPHILS # (AUTO) 0.2 10^3/uL (0.0-0.3); EOSINOPHILS % (AUTO) 4 % (0-10); HEMATOCRIT 22 % (40-54); HEMOGLOBIN 7.3 G/DL (13.3-17.7); LYMPHOCYTES # (AUTO) 0.9 X 10^3 (1.0-4.0); LYMPHOCYTES % (AUTO) 20 % (12-44); MEAN CORPUSCULAR HEMOGLOBIN 30 PG (25-34); MEAN CORPUSCULAR HGB CONC 34 G/DL (32-36); MEAN CORPUSCULAR VOLUME 89 FL (80-99); MEAN PLATELET VOLUME 8.4 FL (7.4-10.4); MONOCYTES # (AUTO) 0.6 X 10^3 (0.0-1.0); MONOCYTES % (AUTO) 13 % (0-12); NEUTROPHILS # (AUTO) 2.7 X 10^3 (1.8-7.8); NEUTROPHILS % (AUTO) 63 % (42-75); PLATELET COUNT 191 10^3/uL (130-400); RED CELL DISTRIBUTION WIDTH 17.7 % (10.0-14.5); WHITE BLOOD COUNT 4.4 10^3/uL (4.3-11.0)
[2019-08-04 13:41] LABS: ALBUMIN 2.9 GM/DL (3.2-4.5); BILIRUBIN,TOTAL 0.3 MG/DL (0.1-1.0); CALCIUM 7.6 MG/DL (8.5-10.1); CREATININE SERUM 2.89 MG/DL (0.60-1.30); MAGNESIUM 1.2 MG/DL (1.6-2.4); POTASSIUM 2.9 MMOL/L (3.6-5.0); TOTAL PROTEIN 6.5 GM/DL (6.4-8.2)
[~2019-08-25 10:52] MED LIST changes: +ATROPINE INJ 0.4 MG/ML SDV (CANCER CENTER) INJ SCH; +D5W IV SCH; +FLUOROURACIL IV SCH; +FOSAPREPITANT DIMEGLUMINE 150 MG in NS (IVPB) CANCER CENTER ONLY 150 ML IV SCH; +IRINOTECAN HCL 300 MG in D5W 250 ML IVPB (CANCER CTR) 250 ML IV SCH; +IRINOTECAN HCL IV SCH; +LEUCOVORIN CALCIUM 700 MG in D5W 250 ML IVPB (CANCER CTR) 250 ML IV SCH; +LEUCOVORIN CALCIUM IV SCH; +MAGNESIUM SULFATE (CANCER CTR) 2 GM in NS (IVPB) CANCER CENTER 100 ML IV ONE; +MAGNESIUM SULFATE (CANCER CTR) 2 GM in NS IV 1000 ML (CANCER CTR) 1,000 ML IV ONE; +NS IV 1000 ML (CANCER CTR) 1,000 ML ONE; +NS IV 1000 ML (CANCER CTR) IV SCH; +NS IV SCH; +ONDANSETRON 8 MG, DEXAMETHASONE 4 MG/NS 50 ML IVPB (Cancer Ctr) IV ONE; +PALONOSETRON HCL 0.25 MG, DEXAMETHASONE INJECTION 10 MG in NS (IVPB) CANCER CENTER 50 ML IV SCH; +PANITUMUMAB INJECTION 400 MG in NS (IVPB) CANCER CENTER 100 ML IV SCH; +PANITUMUMAB INJECTION 400 MG, PANITUMUMAB INJECTION 100 MG in NS (IVPB) CANCER CENTER 1... IV SCH; +[UNRECOGNIZED DRUG - OTHER] IV SCH
[2019-08-25 11:54] LABS: BASOPHILS # (AUTO) 0.1 10^3/uL (0.0-0.1); BASOPHILS % (AUTO) 1 % (0-10); EOSINOPHILS # (AUTO) 0.4 10^3/uL (0.0-0.3); EOSINOPHILS % (AUTO) 9 % (0-10); HEMATOCRIT 25 % (40-54); HEMOGLOBIN 8.2 G/DL (13.3-17.7); LYMPHOCYTES % (AUTO) 25 % (12-44); MEAN CORPUSCULAR HEMOGLOBIN 31 PG (25-34); MEAN CORPUSCULAR HGB CONC 33 G/DL (32-36); MEAN CORPUSCULAR VOLUME 93 FL (80-99); MONOCYTES # (AUTO) 0.7 X 10^3 (0.0-1.0); MONOCYTES % (AUTO) 18 % (0-12); NEUTROPHILS # (AUTO) 1.9 X 10^3 (1.8-7.8); NEUTROPHILS % (AUTO) 47 % (42-75); PLATELET COUNT 222 10^3/uL (130-400); RED CELL DISTRIBUTION WIDTH 18.9 % (10.0-14.5)
[2019-08-25 12:09] LABS: ALBUMIN 2.8 GM/DL (3.2-4.5)
[2019-08-25 12:10] LABS: POTASSIUM 2.9 MMOL/L (3.6-5.0)
[2019-08-25 12:11] LABS: CALCIUM 7.7 MG/DL (8.5-10.1)
[2019-08-25 12:12] LABS: TOTAL PROTEIN 6.5 GM/DL (6.4-8.2)
[2019-08-25 12:14] LABS: BILIRUBIN,TOTAL 0.2 MG/DL (0.1-1.0)
[2019-08-25 12:16] LABS: CREATININE SERUM 2.96 MG/DL (0.60-1.30)
== END 2019-09-07 | disposition home or self-care (01) ==
LOC: ONC 10:52
PROVIDERS: ATTEND Internal Medicine Hematology & Oncology
DX: Z51.11 Encounter for antineoplastic chemotherapy (principal); C20 Malignant neoplasm of rectum; C79.51 Secondary malignant neoplasm of bone; K43.5 Parastomal hernia without obstruction or gangrene; M54.5 Low back pain; R06.00 Dyspnea, unspecified; R32 Unspecified urinary incontinence; Z79.899 Other long term (current) drug therapy
CPT/HCPCS: 36591; 80048; 80053; 83735; 85025; 96365; 96367; 96368; 96375; 96411; 96413; 96417

== ENCOUNTER 2019-10-08 14:01 | Outpatient (RCR) | payer MEDICARE, MEDICAID ==
[2019-09-08 11:47] LABS: BASOPHILS % (AUTO) 1 % (0-10); EOSINOPHILS # (AUTO) 0.2 10^3/uL (0.0-0.3); EOSINOPHILS % (AUTO) 3 % (0-10); HEMATOCRIT 25 % (40-54); HEMOGLOBIN 8.3 G/DL (13.3-17.7); LYMPHOCYTES # (AUTO) 0.8 X 10^3 (1.0-4.0); LYMPHOCYTES % (AUTO) 15 % (12-44); MEAN CORPUSCULAR HEMOGLOBIN 31 PG (25-34); MEAN CORPUSCULAR HGB CONC 33 G/DL (32-36); MEAN CORPUSCULAR VOLUME 94 FL (80-99); MEAN PLATELET VOLUME 8.9 FL (7.4-10.4); MONOCYTES # (AUTO) 0.4 X 10^3 (0.0-1.0); MONOCYTES % (AUTO) 8 % (0-12); NEUTROPHILS # (AUTO) 3.9 X 10^3 (1.8-7.8); NEUTROPHILS % (AUTO) 74 % (42-75); PLATELET COUNT 240 10^3/uL (130-400); RED CELL DISTRIBUTION WIDTH 17.9 % (10.0-14.5); WHITE BLOOD COUNT 5.3 10^3/uL (4.3-11.0)
[2019-09-08 12:07] LABS: ALBUMIN 2.8 GM/DL (3.2-4.5); CALCIUM 7.4 MG/DL (8.5-10.1); POTASSIUM 2.8 MMOL/L (3.6-5.0)
[2019-09-08 12:08] LABS: BILIRUBIN,TOTAL 0.3 MG/DL (0.1-1.0); CREATININE SERUM 3.2 MG/DL (0.60-1.30); TOTAL PROTEIN 6.8 GM/DL (6.4-8.2)
[2019-09-08 12:09] LABS: MAGNESIUM 1.1 MG/DL (1.6-2.4)
[2019-09-22 09:40] LABS: BASOPHILS % (AUTO) 0 % (0-10); EOSINOPHILS # (AUTO) 0.3 10^3/uL (0.0-0.3); EOSINOPHILS % (AUTO) 5 % (0-10); HEMATOCRIT 22 % (40-54); LYMPHOCYTES # (AUTO) 1.2 X 10^3 (1.0-4.0); LYMPHOCYTES % (AUTO) 20 % (12-44); MEAN CORPUSCULAR HEMOGLOBIN 31 PG (25-34); MEAN CORPUSCULAR HGB CONC 32 G/DL (32-36); MEAN CORPUSCULAR VOLUME 95 FL (80-99); MEAN PLATELET VOLUME 8.3 FL (7.4-10.4); MONOCYTES # (AUTO) 0.8 X 10^3 (0.0-1.0); MONOCYTES % (AUTO) 13 % (0-12); NEUTROPHILS # (AUTO) 3.5 X 10^3 (1.8-7.8); NEUTROPHILS % (AUTO) 61 % (42-75); PLATELET COUNT 155 10^3/uL (130-400); RED CELL DISTRIBUTION WIDTH 18.4 % (10.0-14.5); WHITE BLOOD COUNT 5.7 10^3/uL (4.3-11.0)
[2019-09-22 09:44] LABS: HEMOGLOBIN 6.9 G/DL (13.3-17.7)
[2019-09-22 10:04] LABS: ALBUMIN 2.6 GM/DL (3.2-4.5); BILIRUBIN,TOTAL 0.2 MG/DL (0.1-1.0); CALCIUM 6.9 MG/DL (8.5-10.1); CREATININE SERUM 3.68 MG/DL (0.60-1.30); POTASSIUM 2.6 MMOL/L (3.6-5.0); TOTAL PROTEIN 6.3 GM/DL (6.4-8.2)
[2019-09-22 10:30] LABS: MAGNESIUM 0.8 MG/DL (1.6-2.4)
[2019-10-06 13:48] LABS: BASOPHILS % (AUTO) 1 % (0-10); EOSINOPHILS # (AUTO) 0.2 10^3/uL (0.0-0.3); EOSINOPHILS % (AUTO) 5 % (0-10); HEMATOCRIT 25 % (40-54); HEMOGLOBIN 7.8 G/DL (13.3-17.7); LYMPHOCYTES # (AUTO) 1.1 X 10^3 (1.0-4.0); LYMPHOCYTES % (AUTO) 23 % (12-44); MEAN CORPUSCULAR HEMOGLOBIN 31 PG (25-34); MEAN CORPUSCULAR HGB CONC 31 G/DL (32-36); MEAN CORPUSCULAR VOLUME 98 FL (80-99); MONOCYTES # (AUTO) 0.5 X 10^3 (0.0-1.0); MONOCYTES % (AUTO) 10 % (0-12); NEUTROPHILS % (AUTO) 62 % (42-75); PLATELET COUNT 185 10^3/uL (130-400); RED CELL DISTRIBUTION WIDTH 18.3 % (10.0-14.5); WHITE BLOOD COUNT 4.8 10^3/uL (4.3-11.0)
[2019-10-06 14:00] LABS: ALBUMIN 2.7 GM/DL (3.2-4.5); BILIRUBIN,TOTAL 0.3 MG/DL (0.1-1.0); CALCIUM 7.3 MG/DL (8.5-10.1); CREATININE SERUM 4.12 MG/DL (0.60-1.30); POTASSIUM 5.4 MMOL/L (3.6-5.0); TOTAL PROTEIN 6.7 GM/DL (6.4-8.2)
[2019-10-06 14:03] LABS: MAGNESIUM 0.8 MG/DL (1.6-2.4)
[~2019-10-08 14:01] MED LIST changes: -ATROPINE INJ 0.4 MG/ML SDV (CANCER CENTER) INJ SCH; -D5W IV SCH; -FLUOROURACIL IV SCH; -FOSAPREPITANT DIMEGLUMINE 150 MG in NS (IVPB) CANCER CENTER ONLY 150 ML IV SCH; -IRINOTECAN HCL 300 MG in D5W 250 ML IVPB (CANCER CTR) 250 ML IV SCH; -IRINOTECAN HCL IV SCH; -LEUCOVORIN CALCIUM IV SCH; -MAGNESIUM SULFATE (CANCER CTR) 2 GM in NS IV 1000 ML (CANCER CTR) 1,000 ML IV ONE; +MAGNESIUM SULFATE (CANCER CTR) 4 GM in NS (IVPB) CANCER CENTER 100 ML IV ONE; -NS IV 1000 ML (CANCER CTR) 1,000 ML ONE; +NS IV 500 ML (CANCER CENTER) 500 ML ONE; -NS IV SCH; -ONDANSETRON 8 MG, DEXAMETHASONE 4 MG/NS 50 ML IVPB (Cancer Ctr) IV ONE; -PANITUMUMAB INJECTION 400 MG, PANITUMUMAB INJECTION 100 MG in NS (IVPB) CANCER CENTER 1... IV SCH; -[UNRECOGNIZED DRUG - OTHER] IV SCH
== END 2019-10-19 15:03 | disposition home or self-care (01) ==
LOC: ONC 14:01
PROVIDERS: ATTEND Internal Medicine Hematology & Oncology
DX: Z51.11 Encounter for antineoplastic chemotherapy (principal); C20 Malignant neoplasm of rectum; C79.51 Secondary malignant neoplasm of bone; M54.5 Low back pain; R06.00 Dyspnea, unspecified; R32 Unspecified urinary incontinence; K43.5 Parastomal hernia without obstruction or gangrene; Z79.899 Other long term (current) drug therapy
CPT/HCPCS: 36430; 36591; 80053; 83735; 85025; 86850; 86900; 86901; 86920; 96365; 96367; 96375; 96411; 96413

== ENCOUNTER 2019-11-13 22:58 | Emergency (ER) | payer MEDICARE, MEDICAID ==
[~2019-11-13] VITALS: Ht 182 cm; Wt 73.0 kg
[~2019-11-13 22:58] MED LIST changes: -LEUCOVORIN CALCIUM 700 MG in D5W 250 ML IVPB (CANCER CTR) 250 ML IV SCH; -MAGNESIUM SULFATE (CANCER CTR) 2 GM in NS (IVPB) CANCER CENTER 100 ML IV ONE; -MAGNESIUM SULFATE (CANCER CTR) 4 GM in NS (IVPB) CANCER CENTER 100 ML IV ONE; -NS IV 1000 ML (CANCER CTR) IV SCH; -NS IV 500 ML (CANCER CENTER) 500 ML ONE; -PALONOSETRON HCL 0.25 MG, DEXAMETHASONE INJECTION 10 MG in NS (IVPB) CANCER CENTER 50 ML IV SCH; -PANITUMUMAB INJECTION 400 MG in NS (IVPB) CANCER CENTER 100 ML IV SCH
--- NOTE | 2019-11-14 00:31 | NUR ---
THIS RN CALLED [facility] AND SPOKE WITH YOSELNY, THE NURSE ON DUTY, AND INFORMED HER THAT THE PT WILL BE TRANSFERRING TO [facility].
--- NOTE | 2019-11-14 01:59 | NUR ---
REPORT GIVEN TO BRODIE RASMUSSEN AT [facility].
--- NOTE | 2019-11-14 02:20 | ED GU-Male ---
General Chief Complaint: Catheter/Drain/Tube Problems Stated Complaint: TUBE REPLACED Nursing Triage Note: PT REPORTS THAT HE WAS ABOUT TO FALL BACKWARDS, GRABBED THE ARM RAILS OF HIS WHEELCHAIR, AND PULLED HIS NEPHROSTOMY TUBE OUT. PT DENIES PAIN, CHEST PAIN, SOA, COUGH, FEVERS, EXPOSURE TO CORONAVIRUS. Source: patient (PT IS LIMITED HISTORIAN AND HAS POOR MEMORY) History of Present Illness Date Seen by Provider: Nov 13, 2019 Time Seen by Provider: 23:21 Initial Comments PT ARRIV[facility] V[facility] POV FROM [facility], IN WHEELCHAIR STATES HE WAS TRYING TO STAND AND HE STARTED TO FALL AND HE WAS TRYING TO CATCH HIMSELF AND ACCIDENTALLY PULLED OUT HIS LEFT NEPHROSTOMY TUBE. OCCURRED JUST PRIOR TO ARRIVAL NO SIGNIFICANT DRAINAGE FROM THE AREA AND NO BLEEDING PT IS BEING TREATED FOR RECURRENT METASTATIC RECTAL CANCER HAS PERMANENT COLOSTOMY IN LEFT MID ABDOMEN PT HAS BILATERAL URETERAL OBSTRUCTION AND RENAL FAILURE. HE HAD A STENT PLACED IN RIGHT URETER 02/2019, ATTEMPTS TO STENT LEFT URETER WERE UNSUCCESSFUL AND PT HAD LEFT NEPHROSTOMY TUBE PLACED. PT CANNOT RECALL WHERE HE HAD THE TUBE PLACED PT CANNOT RECALL HIS UROLOGIST OR LOCKS INSPECTOR. PCP: [facility]. DR. MORGAN HAS SEEN DR. PENA LOCALLY FOR UROLOGY Allergies and Home Medications Allergies Coded Allergies: No Known Drug Allergies (Unverified , 08/02/13) Home Medications Fentanyl 1 Each Patch.td72, 50 MCG TD Q72H, (Reported) Melatonin/Pyridoxine HCl (B6) 1 Each Tablet, 3 MG PO HS, (Reported) Multivitamin with Minerals 1 Each Tablet, 1 EACH PO DAILY, (Reported) Oxycodone HCl/Acetaminophen 1 Each Tablet, 1 EACH PO Q4H PRN for PAIN-SEVERE, (Reported) Patiromer Calcium Sorbitex 8.4 Gm Powd.pack, 8.4 GM PO DAILY, (Reported) Phenazopyridine HCl 200 Mg Tablet, 1 TAB PO TID PRN for SPASMS Prescribed by: IDA PEREZ on 03/16/19 1348 Sertraline HCl 50 Mg Tablet, 50 MG PO DAILY, (Reported) Sulfamethoxazole/Trimethoprim 1 Each Tablet, 1 EACH PO BID Prescribed by: IDA PEREZ on 03/16/19 1348 Tamsulosin HCl 0.4 Mg Cap, 0.4 MG PO DAILY Prescribed by: IDA PEREZ on 03/16/19 1348 Patient Home Medication List Home Medication List Reviewed: Yes Review of Systems Review of Systems Constitutional: no symptoms reported; No chills, No fever EENTM: no symptoms reported Respiratory: no symptoms reported Cardiovascular: no symptoms reported Gastrointestinal: see HPI; No abdominal pain, No nausea, No vomiting Genitourinary: see HPI Musculoskeletal: No back pain Skin: no symptoms reported Psychiatric/Neurological: No Symptoms Reported Endocrine: No Symptoms Reported Hematologic/Lymphatic: No Symptoms Reported Past Tuztivy-Ajdisc-Qqotai Hx Past Med/Social Hx: Reviewed and Corrections made Patient Social History Alcohol Use: Denies Use Recreational Drug Use: Yes (THC) Drug of Choice: Marijuana Smoking Status: Current Everyday Smoker Type Used: Cigarettes 2nd Hand Smoke Exposure: No Recent Foreign Travel: No Contact w/Someone Who Travel: No Recent Infectious Disease Expo: No Recent Hopitalizations: No Physical Abuse: No Sexual Abuse: No Mistreated: No Fear: No Immunizations Up To Date Tetanus Booster (TDap): Unknown PED Vaccines UTD: No Date of Pneumonia Vaccine: Aug 02, 2009 Date of Influenza Vaccine: Mar 14, 2019 Seasonal Allergies Seasonal Allergies: No Past Medical History Surgeries: Yes (BACK SURGERY WITH FUSION, COLORECTAL SURGERY WITH COLOSTOMY) Abdominal, Bowel Surgery, Orthopedic, Renal Respiratory: No Cardiac: No Neurological: No Genitourinary: Yes (LEFT NEPHROSTOMY TUBE; RIGHT URETERAL STENT;BILAT URETERAL OBSTRUCTION) Renal Failure Gastrointestinal: Yes (COLORECTAL CANCER WITH PERMANENT COLOSTOMY AND PARASTOMAL HERNIA) Abdominal Hernia Musculoskeletal: Yes (S/P BACK SURGERY) Arthritis, Back Injury, Chronic Back Pain Endocrine: No HEENT: Yes Tinnitis Loss of Vision: Denies Hearing Impairment: Denies Cancer: Yes Colon Did You Recieve Any Treatments: Yes What Type of Treatment Did You: Chemotherapy, Surgical Intervention LAST DOSE OF CHEMO 2 WEEKS AGO PER PT REPORT Psychosocial: No Integumentary: No Blood Disorders: No Adverse Reaction/Blood Tranf: No Family Medical History Alcoholism 19 FATHER 19 MOTHER Cancer 19 MOTHER (BREAST) G8 BROTHER (STOMACH) G8 SISTER (BREAST) Family history: Breast disease 19 MOTHER Myocardial infarction 19 FATHER Stroke 19 FATHER No Family History of: Abdominal aortic aneurysm Cancer of colon Congestive heart failure Family history: Alzheimer's disease Family history: Arthritis Family history: Asthma Family history: Cardiovascular disease Family history: Diabetes mellitus Family history: Gastrointestinal disease Family history: Hypertension Family history: Thyroid disorder Heart disease Hereditary disease Parkinson's disease Prostate cancer Psychotic disorder Seizure disorder PSH: -COLON RESECTION WITH PERMANENT COLOSTOMY -BACK SURGERY -CYSTOSCOPIES WITH RIGHT URETERAL STENT 02/2019, AND LEFT NEPHROSTOMY TUBE PLACEMENT 02/2019 Physical Exam Vital Signs Vital Signs - First Documented 11/13/19 23:15 Pulse 75 Resp 16 B/P (MAP) 65/ Pulse Ox 99 O2 Delivery Room Air O2 Flow Rate 108.00 Capillary Refill : Less Than 3 Seconds Height, Weight, BMI Height: 5'11.00" Weight: 269lbs. oz. 122.779704mg; 22.00 BMI Method: General Appearance: thin, other (UNKEPT, SPARSE HAIR) Neck: normal inspection Cardiovascular: regular rate, rhythm, no murmur Respiratory: normal breath sounds Gastrointestinal: non tender, soft, other (COLOSTOMY LEFT MID ABDOMEN WITH VERY LARGE LEFT PARASTOMAL HERNIA) Back: other (LEFT NEPHROSTOMY TUBE SITE, WITH SMALL AMOUNT OF SEROSANGUINOUS DRAINAGE, NO SURROUDING ERYTHEMA. NO EZIO URINE FROM THE WOUND. ) Extremities: normal inspection, normal capillary refill Neurologic/Psychiatric: no motor/sensory deficits, alert, normal mood/affect, oriented x 3 (BUT POOR MEMORY) Skin: warm/dry, pallor Progress/Results/Core Measures Suspected Sepsis Recent Fever Within 48 Hours: No Infection Criteria Present: None New/Unexplained Altered Menta: No Sepsis Screen: No Definite Risk SIRS Temperature: Pulse: 75 Respiratory Rate: 16 Blood Pressure 65 / Mean: Results/Orders My Orders Orders - NICKO BADILLO DO Hydrocodone/Apap 5/325 Tablet (Lortab 5 (11/14/19 02:30) Medications Given in ED Current Medications Medications Dose Ordered Sig/Paulina Route Start Time Stop Time Status Last Admin Dose Admin Acetaminophen/ Hydrocodone Bitart 1 tab ONCE ONCE PO 11/14/19 02:30 11/14/19 02:31 DC 11/14/19 02:27 1 TAB Vital Signs/I&O 11/13/19 23:15 Pulse 75 Resp 16 B/P (MAP) 65/ Pulse Ox 99 O2 Delivery Room Air O2 Flow Rate 108.00 Capillary Refill : Less Than 3 Seconds Progress Note : Progress Note PT SLEPT THROUGH MOST OF ER STAY 022--C/O CHRONIC BACK PAIN, GIVEN HYDROCODONE Departure Communication (Admissions) NO UROLOGY OR INTERVENTIONAL RADIOLOGY AVAILABLE HERE ALL WEEKEND 232--CALLED [facility], PLACED ON HOLD 2334--CALLED [facility]. 233--SPOKE WITH DR. BENEDICT, UROLOGIST SEMICONDUCTOR WAFER INSPECTOR WITH [facility]. HE STATES THERE IS NO INTERVENTIONAL RADIOLOGY THERE ALL WEEKEND, AND HE DOES NOT HAVE ABILITY TO DO NEPHROSTOMY TUBE REPLACEMENT 234--CALLED [facility]. 235--[facility] WILL CALL BACK 235--[facility] CALLED BACK. PAGING HOSPITALIST 235 AND 4. --SPOKE WITH DR. ROSA, HOSPITALIST. SHE REPORTS THAT INTERVENTIONAL RADIOLOGY AND UROLOGY ARE BOTH AVAILABLE THERE THIS WEEKEND AND ACCEPTS THE PT. [facility] CONTACTED AND INFORMED THAT PT HAS BEEN ACCEPTED AT ANOTHER HOSPITAL. 0300--EMS HERE FOR TRANSPORT Impression Primary Impression: LEFT NEPHROSTOMY TUBE DISLODGEMENT Additional Impressions: HX BILATERAL URETERAL OBSTRUCTION WITH RENAL FAILURE RECURRENT METASTATIC RECTAL CANCER Disposition: XFER SHT-TRM HOSP Condition: Stable Transfer Transfer Reason: Exceeds level of care Transfer Facility: [facility], Method of Transfer: EMS Departure-Patient Inst. Referrals: JESSICA MORGAN MD (PCP/Family) Primary Care Physician NICKO BADILLO DO Nov 14, 2019 02:20
[2019-11-14] MEDS ORDERED: HYDROcodone/APAP 5 MG/325 MG (LORTAB) TAB PO ONE (02:30)
[2019-11-14 03:02] VITALS: BP 123/84
== END 2019-11-14 03:09 | disposition short-term general hospital (02) ==
LOC: EDUNIT# 22:58 → ER 22:59
DX: T83.022A Displacement of nephrostomy catheter, initial encounter (principal); C80.1 Malignant (primary) neoplasm, unspecified; C78.5 Secondary malignant neoplasm of large intestine and rectum; F17.210 Nicotine dependence, cigarettes, uncomplicated; G89.29 Other chronic pain; M54.9 Dorsalgia, unspecified; Z87.448 Personal history of other diseases of urinary system; Z79.891 Long term (current) use of opiate analgesic; Z85.3 Personal history of malignant neoplasm of breast; Z82.49 Family history of ischemic heart disease and other diseases of the circulatory system; Z80.0 Family history of malignant neoplasm of digestive organs

== ENCOUNTER 2020-01-11 12:53 | Outpatient (RCR) | payer MEDICARE, MEDICAID ==
[2019-10-26 14:00] LABS: BASOPHILS % (AUTO) 1 % (0-10); EOSINOPHILS # (AUTO) 0.3 10^3/uL (0.0-0.3); EOSINOPHILS % (AUTO) 5 % (0-10); HEMATOCRIT 26 % (40-54); HEMOGLOBIN 8.7 G/DL (13.3-17.7); LYMPHOCYTES # (AUTO) 1.2 X 10^3 (1.0-4.0); LYMPHOCYTES % (AUTO) 24 % (12-44); MEAN CORPUSCULAR HEMOGLOBIN 32 PG (25-34); MEAN CORPUSCULAR HGB CONC 33 G/DL (32-36); MEAN CORPUSCULAR VOLUME 95 FL (80-99); MEAN PLATELET VOLUME 9.2 FL (7.4-10.4); MONOCYTES # (AUTO) 0.7 X 10^3 (0.0-1.0); MONOCYTES % (AUTO) 14 % (0-12); NEUTROPHILS # (AUTO) 2.8 X 10^3 (1.8-7.8); NEUTROPHILS % (AUTO) 56 % (42-75); PLATELET COUNT 272 10^3/uL (130-400)
[2019-10-26 14:22] LABS: ALBUMIN 2.9 GM/DL (3.2-4.5); BILIRUBIN,TOTAL 0.4 MG/DL (0.1-1.0); CALCIUM 7.6 MG/DL (8.5-10.1); CREATININE SERUM 3.54 MG/DL (0.60-1.30); POTASSIUM 4.5 MMOL/L (3.6-5.0); TOTAL PROTEIN 7.3 GM/DL (6.4-8.2)
[2019-12-08 13:10] LABS: BASOPHILS % (AUTO) 0 % (0-10); EOSINOPHILS # (AUTO) 0.5 10^3/uL (0.0-0.3); EOSINOPHILS % (AUTO) 8 % (0-10); HEMATOCRIT 28 % (40-54); HEMOGLOBIN 8.9 G/DL (13.3-17.7); LYMPHOCYTES # (AUTO) 1.4 X 10^3 (1.0-4.0); LYMPHOCYTES % (AUTO) 26 % (12-44); MEAN CORPUSCULAR HEMOGLOBIN 31 PG (25-34); MEAN CORPUSCULAR HGB CONC 32 G/DL (32-36); MEAN CORPUSCULAR VOLUME 98 FL (80-99); MEAN PLATELET VOLUME 9.1 FL (7.4-10.4); MONOCYTES # (AUTO) 0.6 X 10^3 (0.0-1.0); MONOCYTES % (AUTO) 11 % (0-12); NEUTROPHILS # (AUTO) 3.1 X 10^3 (1.8-7.8); NEUTROPHILS % (AUTO) 55 % (42-75); PLATELET COUNT 224 10^3/uL (130-400); WHITE BLOOD COUNT 5.6 10^3/uL (4.3-11.0)
[2019-12-08 13:33] LABS: ALBUMIN 2.4 GM/DL (3.2-4.5); BILIRUBIN,TOTAL 0.4 MG/DL (0.1-1.0); CALCIUM 7.4 MG/DL (8.5-10.1); CREATININE SERUM 3.35 MG/DL (0.60-1.30); MAGNESIUM 1.6 MG/DL (1.6-2.4); TOTAL PROTEIN 5.6 GM/DL (6.4-8.2)
[~2020-01-11 12:53] MED LIST changes: +FAMOTIDINE 20MG/2ML IV (CANCER CTR) ONE; +LEUCOVORIN CALCIUM 700 MG in D5W 250 ML IVPB (CANCER CTR) 250 ML IV SCH; +MAGNESIUM SULFATE (CANCER CTR) 3 GM in NS (IVPB) CANCER CENTER 100 ML IV ONE; +MAGNESIUM SULFATE IV ONE; +NS IV 1000 ML (CANCER CTR) IV SCH; +NS IV ONE; +PANITUMUMAB INJECTION 400 MG in NS (IVPB) CANCER CENTER 100 ML IV SCH; +diphenhydrAMINE 25 MG TAB (BENADRYL) CANCER CENTER PO ONE
[2020-01-11 13:21] LABS: BASOPHILS % (AUTO) 1 % (0-10); EOSINOPHILS # (AUTO) 0.3 10^3/uL (0.0-0.3); EOSINOPHILS % (AUTO) 7 % (0-10); HEMATOCRIT 22 % (40-54); LYMPHOCYTES % (AUTO) 28 % (12-44); MEAN CORPUSCULAR HEMOGLOBIN 30 PG (25-34); MEAN CORPUSCULAR HGB CONC 31 G/DL (32-36); MEAN CORPUSCULAR VOLUME 97 FL (80-99); MEAN PLATELET VOLUME 8.4 FL (7.4-10.4); MONOCYTES # (AUTO) 0.5 X 10^3 (0.0-1.0); MONOCYTES % (AUTO) 13 % (0-12); NEUTROPHILS # (AUTO) 1.9 X 10^3 (1.8-7.8); NEUTROPHILS % (AUTO) 52 % (42-75); PLATELET COUNT 222 10^3/uL (130-400); WHITE BLOOD COUNT 3.7 10^3/uL (4.3-11.0)
[2020-01-11 13:27] LABS: HEMOGLOBIN 6.7 G/DL (13.3-17.7)
[2020-01-11 13:40] LABS: ALBUMIN 2.4 GM/DL (3.2-4.5); BILIRUBIN,TOTAL 0.2 MG/DL (0.1-1.0); CREATININE SERUM 3.65 MG/DL (0.60-1.30); TOTAL PROTEIN 6.7 GM/DL (6.4-8.2)
== END 2020-01-24 | disposition home or self-care (01) ==
LOC: ONC 12:53
PROVIDERS: ATTEND Internal Medicine Hematology & Oncology
DX: Z51.11 Encounter for antineoplastic chemotherapy (principal); C20 Malignant neoplasm of rectum; C79.51 Secondary malignant neoplasm of bone; M54.5 Low back pain; E83.42 Hypomagnesemia; R32 Unspecified urinary incontinence; K43.5 Parastomal hernia without obstruction or gangrene; N17.9 Acute kidney failure, unspecified; N13.5 Crossing vessel and stricture of ureter without hydronephrosis; R06.00 Dyspnea, unspecified; Z96.0 Presence of urogenital implants; Z93.6 Other artificial openings of urinary tract status; Z79.899 Other long term (current) drug therapy
CPT/HCPCS: 80053; 83735; 85025; 96367; 96368; 96375; 96413; 96521; G0463; 36591; 96365